=== PATIENT | male | born 1935 | race Caucasian/White ===

== ENCOUNTER → 2018-09-24 | Outpatient (CLI) | payer MEDICARE ==
[~2018-09-24] MED LIST: ADV250 IH; ASPI-555 PO; CALC500T13 PO; FISH12002 PO; GUAI1TBM19 PO; LEVO500T89 PO; MULT-1081 PO; POTA15TA11 PO; RAMI10CA69 PO; TIOT18CA3 IH; UBID50TA3 PO
== END | disposition home or self-care (01) ==
LOC: OIH 08:44
PROVIDERS: ATTEND Family Medicine
DX: J44.9 Chronic obstructive pulmonary disease, unspecified (principal); I25.10 Atherosclerotic heart disease of native coronary artery without angina pectoris; Z72.89 Other problems related to lifestyle
CPT/HCPCS: 71046

== ENCOUNTER 2020-01-02 11:56 | Inpatient (IN) | payer MEDICARE, OTHER ==
[2020-01-02] VITALS (15 sets, daily range): BP systolic 125–176; BP diastolic 63–97
[~2020-01-02] VITALS: Ht 180.3 cm; Wt 66.9 kg
[2020-01-02 12:56] LABS: BASOPHILS % (AUTO) 0.3 % (0.0-5.0); EOSINOPHILS % (AUTO) 3.6 % (0.0-8.0); HEMATOCRIT 30.8 % (42-54); LYMPHOCYTES % (AUTO) 20.3 % (21.0-51.0); MEAN CORPUSCULAR HEMOGLOBIN 31.2 pg (27.0-33.0); MEAN CORPUSCULAR HGB CONC 31.5 g/dL (32.0-36.0); MONOCYTES % (AUTO) 11.2 % (3.0-13.0); NEUTROPHILS % (AUTO) 64.3 % (40.0-77.0); PLATELET COUNT (AUTO) 226 K/uL (130-400); RED BLOOD CELL COUNT(AUTO) 3.11 MIL/uL (4.50-6.20); WHITE BLOOD COUNT (AUTO) 6.1 K/uL (4.8-10.8)
[2020-01-02 13:04] LABS: POTASSIUM 4.6 mmol/L (3.5-5.1)
[2020-01-02 13:10] LABS: ALBUMIN 3.2 g/dL (3.5-5.0); BILIRUBIN,TOTAL 0.3 mg/dL (0.2-1.0); TOTAL PROTEIN, SERUM 7.4 g/dL (6.0-8.3)
[2020-01-02] MEDS ORDERED: IPRATROPIUM/ALBUTEROL SULFATE 3 ML SOLUTION IH ONE (16:30)
[2020-01-02] MEDS ORDERED: PROPOFOL 10 MG/ML 20ML VIAL IV ONE (18:36)
[2020-01-02] MEDS ORDERED: LIDOCAINE HCL-MPF 2% 5ML VIAL ONE (18:38)
--- NOTE | 2020-01-02 19:25 | NUR ---
TRANSFER FROM GI LAB PT RECEIVED FROM GI LAB AT THIS TIME, AWAKE, ALERT AND VERBALLY RESPONSIVE. NO C/O PAIN OR DISCOMFORT AT THIS TIME. PT AND CAREGIVER ORIENTED TO ROOM, CALL COLON WITHIN REACH, BED IN LOWEST POSITION. Addendum: 01/02/20 at 2104 by SHAREE FLOREZ RN Amended: Links added.
[2020-01-02] MEDS: SODIUM CHLORIDE 0.9% 1000ML 1,000 ML IV SCH (20:30)
[2020-01-02] MEDS ORDERED: METO10TA3 PO (20:50)
[2020-01-02] MEDS ORDERED: TAMS-1 PO (20:50)
[2020-01-02] MEDS ORDERED: MONT10TA26 PO (20:50)
[2020-01-02] MEDS ORDERED: BACL10TA PO (20:50)
[2020-01-02] MEDS ORDERED: TRAZ-185 PO (20:50)
[2020-01-02] MEDS ORDERED: CLON0.1T PO (20:50)
[2020-01-02] MEDS ORDERED: ALBU1.252 IH (20:53)
[2020-01-03 00:08] VITALS: BP 133/74
[2020-01-03] MEDS: MEPERIDINE HCL/PF 25 MG/0.5 ML AMPUL IVP PRN ×3 (00:32→22:17)
[2020-01-03] MEDS ORDERED: GUAIFENESIN-DM 200/20 MG 10 ML PO PRN (01:00)
[2020-01-03] MEDS ORDERED: LACTULOSE 20 GM/30 ML UDCUP PO PRN (01:00)
[2020-01-03] MEDS ORDERED: DiphenhydrAMINE HCL 50 MG/ML VIAL IV PRN (01:00)
[2020-01-03] MEDS ORDERED: DIPHENHYDRAMINE HCL 25 MG CAPSULE PO PRN (01:00)
[2020-01-03] MEDS ORDERED: ACETAMINOPHEN 325 MG TAB PO PRN ×2 (01:00)
[2020-01-03] MEDS ORDERED: NITROGLYCERIN 0.4 MG SL TAB SL PRN (01:00)
[2020-01-03] MEDS ORDERED: MAG HYDROX/AL HYDROX/SIMETH ES 30 ML SUSP UDCUP PO PRN (01:00)
[2020-01-03 04:08] VITALS: BP 158/85
[2020-01-03 05:47] LABS: HEMATOCRIT 30.5 % (42-54); MEAN CORPUSCULAR HEMOGLOBIN 32.1 pg (27.0-33.0); MEAN CORPUSCULAR HGB CONC 32.5 g/dL (32.0-36.0); PLATELET COUNT (AUTO) 236 K/uL (130-400); RED BLOOD CELL COUNT(AUTO) 3.08 MIL/uL (4.50-6.20)
[2020-01-03 05:58] LABS: CREATININE 0.9 mg/dL (0.5-1.5); POTASSIUM 4.4 mmol/L (3.5-5.1)
[2020-01-03 06:16] LABS: BASOPHILS % (MANUAL) 1 % (0-2); EOSINOPHILS % (MANUAL) 5 % (1-6); LYMPHOCYTES % (MANUAL) 39 % (22-44); MAN.DIFF COMMENT-IMPRESSION MANUAL DIFFERENTIAL; MONOCYTES % (MANUAL) 8 % (2-9); SEGMENTED NEUTROPHILS % 47 % (40-70)
[2020-01-03] MEDS ORDERED: ALBUTEROL SULFATE 0.083% 2.5 MG/3 ML INH IH ONE (06:29)
[2020-01-03] MEDS: ALBUTEROL SULFATE 0.083% 2.5 MG/3 ML INH IH SCH ×4 (06:30→22:59)
[2020-01-03] MEDS ORDERED: ALBUTEROL SULFATE 0.042% 1.25 MG/3 ML INH IH SCH ×2 (06:30→12:00)
[2020-01-03 08:00] VITALS: BP 136/67
[2020-01-03] MEDS: FAMOTIDINE/PF 20 MG/2 ML VIAL IV SCH (09:08)
[2020-01-03] MEDS: BISACODYL 5 MG TABLET.DR PO SCH ×2 (09:08→20:28)
[2020-01-03] MEDS: POLYETHYLENE GLYCOL 3350 17 GM POWD.PACK PO SCH ×2 (09:09→20:28)
[2020-01-03 11:00] VITALS: BP 132/77
--- NOTE | 2020-01-03 12:22 | NUR ---
dr rodrigues paged inregards to starting pt's home medications and to give him updates on patient; pending call back
--- NOTE | 2020-01-03 12:34 | NUR ---
dr rodrigues here to see patient he said to hold pt's home medications that are oral till after cleared by dr morales and tolerating diet; I told him pt is still in extreme pain at times and he stated the [place] surgical consult will need to see patient in regards to possible necrotic bowel.
[2020-01-03 16:00] VITALS: BP 136/67
--- NOTE | 2020-01-03 16:42 | NUR ---
INITIAL: Met with pt this afternoon to discuss dcp. Pt mentions that he lives alone. He is independent w ambulation and ADls. He mentions that he has 28/05 caregivers avail to assist him as needed. Per pt he has home O2, walkers and wc avail if needed. He mentions that his caregivers are able to transport him where needed. Per pt he feels safe and comfortable to return home at mo. CM to continue to follow and wait for Md recommendations. Addendum: 01/03/20 at 1644 by CORBY LEES Amended: Links added.
--- NOTE | 2020-01-03 17:36 | NUR ---
18 fr rectal tube inserted and corona leg bag attached to end of it.
[2020-01-03] MEDS: IPRATROPIUM/ALBUTEROL SULFATE 3 ML SOLUTION IH SCH ×2 (18:27→22:57)
[2020-01-03] MEDS: BUDESONIDE 0.5 MG/2 ML INH IH SCH (18:38)
[2020-01-03 20:04] VITALS: BP 151/81
[2020-01-03] MEDS: SODIUM CHLORIDE 0.9% 1000ML 1,000 ML IV SCH (20:28)
[2020-01-03] MEDS: ONDANSETRON HCL 4 MG/2 ML VIAL IVP PRN (22:24)
[2020-01-04 00:04] VITALS: BP 149/68
[2020-01-04 04:04] VITALS: BP 121/69
[2020-01-04] MEDS: ALBUTEROL SULFATE 0.083% 2.5 MG/3 ML INH IH SCH (06:00)
[2020-01-04] MEDS: SODIUM CHLORIDE 0.9% 1000ML 1,000 ML IV SCH ×2 (06:07→20:17)
[2020-01-04] MEDS: BUDESONIDE 0.5 MG/2 ML INH IH SCH ×2 (06:16→18:48)
[2020-01-04] MEDS: IPRATROPIUM/ALBUTEROL SULFATE 3 ML SOLUTION IH SCH ×4 (06:16→23:35)
[2020-01-04 08:00] VITALS: BP 142/90
[2020-01-04] MEDS: POLYETHYLENE GLYCOL 3350 17 GM POWD.PACK PO SCH ×3 (10:51→20:20)
[2020-01-04] MEDS: FAMOTIDINE/PF 20 MG/2 ML VIAL IV SCH (10:51)
[2020-01-04] MEDS: BISACODYL 5 MG TABLET.DR PO SCH ×3 (10:51→20:20)
[2020-01-04 11:00] VITALS: BP 163/79
--- NOTE | 2020-01-04 13:14 | NUR ---
dr morales here to see patient; pt is slightly more disteneded today than yesterday despite fact that he has a rectal tube in place to help him pass gas, i have told him that pt has had 2 liquid stools. he stated to make pt npo and get cardiac consult for possible surgical clearance (dr aaron ponce j2ee application developer and he has been paged) and to call dr Tania Kaur and see if he wants to rescope the pt to decompress him ( i spoke to dr tania kaur on the phone and he said he'll take pt back tomorrow for decompression)
[2020-01-04 16:00] VITALS: BP 153/92
[2020-01-04 20:04] VITALS: BP 161/77
[2020-01-04] MEDS: ONDANSETRON HCL 4 MG/2 ML VIAL IVP PRN (22:08)
[2020-01-04] MEDS: MEPERIDINE HCL/PF 25 MG/0.5 ML AMPUL IVP PRN (22:08)
[2020-01-05] VITALS (24 sets, daily range): BP systolic 102–169; BP diastolic 62–88
[2020-01-05] MEDS: BUDESONIDE 0.5 MG/2 ML INH IH SCH ×2 (05:08→19:05)
[2020-01-05] MEDS: IPRATROPIUM/ALBUTEROL SULFATE 3 ML SOLUTION IH SCH ×4 (05:08→23:48)
[2020-01-05] MEDS: SODIUM CHLORIDE 0.9% 1000ML 1,000 ML IV SCH ×2 (05:19→18:36)
--- NOTE | 2020-01-05 06:30 | NUR ---
PT OFF UNIT PT TAKEN TO GI LAB THIS MORNING FOR SIGMOIDOSCOPY PROCEDURE. PT AWAKE, ALERT AND VERBALLY RESPONSIVE, TAKEN ON OXYGEN 2L VIA NC, NO S/O OF DISTRESS NOTED, NO C/O PAIN AT THIS TIME. ABDOMEN DISTENDED, BUT SOFT WHEN PALPATED.
[2020-01-05] MEDS ORDERED: PROPOFOL 10 MG/ML 20ML VIAL IV ONE (06:52)
[2020-01-05] MEDS ORDERED: LIDOCAINE HCL 1% 20 ML VIAL ONE (06:52)
--- NOTE | 2020-01-05 08:30 | NUR ---
s/p GI pt arrived to room awake, alert and oriented. provider at bedside. patient denies any pain and/or shortness of breath. post op vitals started. bowel sounds active
[2020-01-05] MEDS: POLYETHYLENE GLYCOL 3350 17 GM POWD.PACK PO SCH ×2 (08:51→19:51)
[2020-01-05] MEDS: FAMOTIDINE/PF 20 MG/2 ML VIAL IV SCH (08:51)
[2020-01-05] MEDS: BISACODYL 5 MG TABLET.DR PO SCH ×2 (08:51→19:51)
[2020-01-05] MEDS: ALBUTEROL SULFATE 0.083% 2.5 MG/3 ML INH IH SCH (23:48)
[2020-01-06 03:53] VITALS: BP 155/83
[2020-01-06] MEDS: BUDESONIDE 0.5 MG/2 ML INH IH SCH ×2 (05:04→18:21)
[2020-01-06] MEDS: IPRATROPIUM/ALBUTEROL SULFATE 3 ML SOLUTION IH SCH ×4 (05:04→23:28)
[2020-01-06] MEDS: ALBUTEROL SULFATE 0.083% 2.5 MG/3 ML INH IH SCH ×3 (06:00→18:00)
[2020-01-06 06:40] LABS: HEMATOCRIT 29.3 % (42-54); MEAN CORPUSCULAR HEMOGLOBIN 30.7 pg (27.0-33.0); MEAN CORPUSCULAR HGB CONC 31.7 g/dL (32.0-36.0); MEAN CORPUSCULAR VOLUME 96.7 fL (79-99); PLATELET COUNT (AUTO) 222 K/uL (130-400); RED BLOOD CELL COUNT(AUTO) 3.03 MIL/uL (4.50-6.20); RED CELL DISTRIBUTION WIDTH 12.5 % (11.0-15.5)
[2020-01-06] MEDS: SODIUM CHLORIDE 0.9% 1000ML 1,000 ML IV SCH ×2 (07:00→18:08)
[2020-01-06 07:07] LABS: BILIRUBIN,TOTAL 0.4 mg/dL (0.2-1.0); TOTAL PROTEIN, SERUM 7.3 g/dL (6.0-8.3)
[2020-01-06 07:31] LABS: EOSINOPHILS % (MANUAL) 7 % (1-6); LYMPHOCYTES % (MANUAL) 24 % (22-44); MONOCYTES % (MANUAL) 16 % (2-9); SEGMENTED NEUTROPHILS % 53 % (40-70)
[2020-01-06 07:33] LABS: MAN.DIFF COMMENT-IMPRESSION MANUAL DIFFERENTIAL
[2020-01-06 07:34] LABS: PLATELET MORPHOLOGY COMMENT ADEQUATE
[2020-01-06 08:14] VITALS: BP 153/70
[2020-01-06] MEDS: POLYETHYLENE GLYCOL 3350 17 GM POWD.PACK PO SCH ×2 (09:42→20:02)
[2020-01-06] MEDS: BISACODYL 5 MG TABLET.DR PO SCH ×2 (09:42→20:02)
[2020-01-06] MEDS: FAMOTIDINE/PF 20 MG/2 ML VIAL IV SCH (09:43)
[2020-01-06 10:53] VITALS: BP 128/80
--- NOTE | 2020-01-06 13:48 | NUR ---
DC PLANNING-- home? spoke with PTx; was advised pt steady on his feet and transfers independently. Addendum: 01/06/20 at 1349 by GAIL QUINN RN CM Amended: Links added.
[2020-01-06 16:59] VITALS: BP_SYST 158; BP_SYST 159; BP_DIAS 83; BP_DIAS 88
[2020-01-06 20:00] VITALS: BP 147/86
[2020-01-06] MEDS: ONDANSETRON HCL 4 MG/2 ML VIAL IVP PRN (22:57)
[2020-01-07] VITALS (7 sets, daily range): BP systolic 125–156; BP diastolic 69–94
[2020-01-07] MEDS: SODIUM CHLORIDE 0.9% 1000ML 1,000 ML IV SCH ×2 (05:54→17:25)
[2020-01-07] MEDS: IPRATROPIUM/ALBUTEROL SULFATE 3 ML SOLUTION IH SCH ×4 (06:20→23:32)
[2020-01-07] MEDS: BUDESONIDE 0.5 MG/2 ML INH IH SCH ×2 (06:30→18:27)
[2020-01-07] MEDS: FAMOTIDINE/PF 20 MG/2 ML VIAL IV SCH (09:00)
[2020-01-07] MEDS: BISACODYL 5 MG TABLET.DR PO SCH ×2 (09:00→19:44)
--- NOTE | 2020-01-07 11:08 | NUR ---
PT CONTINUES WITH C/O OF ABD PAIN., NAUSEA. ABD TENDER DISTENDED FIRM, BS ABSENT ON RLQ, PT REPORTS POS FLATUS, INFORMED [facility], STATES NO PLANS FOR SURGERY CONTACTED DR OCONNELL COVERING FOR DR MAGDALENO, NO ORDERS MESSAGE LEFT, PENDING CALL BACK, PT IS NPO, STABLE, VS WNL.
[2020-01-07] MEDS: POLYETHYLENE GLYCOL 3350 17 GM POWD.PACK PO SCH ×2 (12:38→19:44)
[2020-01-07] MEDS: ALBUTEROL SULFATE 0.083% 2.5 MG/3 ML INH IH SCH ×2 (18:00)
[2020-01-07] MEDS: MEPERIDINE HCL/PF 25 MG/0.5 ML AMPUL IVP PRN (22:41)
[2020-01-08] VITALS (21 sets, daily range): BP systolic 101–158; BP diastolic 60–95
[2020-01-08] MEDS: SODIUM CHLORIDE 0.9% 1000ML 1,000 ML IV SCH ×2 (05:27→17:57)
[2020-01-08] MEDS: ALBUTEROL SULFATE 0.083% 2.5 MG/3 ML INH IH SCH ×2 (06:00→18:00)
[2020-01-08] MEDS: BUDESONIDE 0.5 MG/2 ML INH IH SCH ×2 (06:07→16:52)
[2020-01-08] MEDS: IPRATROPIUM/ALBUTEROL SULFATE 3 ML SOLUTION IH SCH ×3 (06:08→16:52)
[2020-01-08] MEDS ORDERED: PROPOFOL 10 MG/ML 20ML VIAL IV ONE (07:49)
[2020-01-08] MEDS: BISACODYL 5 MG TABLET.DR PO SCH ×2 (09:00→19:54)
[2020-01-08] MEDS: POLYETHYLENE GLYCOL 3350 17 GM POWD.PACK PO SCH ×2 (09:00→19:54)
[2020-01-08] MEDS: FAMOTIDINE/PF 20 MG/2 ML VIAL IV SCH (09:00)
[2020-01-09] VITALS (7 sets, daily range): BP systolic 139–154; BP diastolic 72–89
[2020-01-09] MEDS: ALBUTEROL SULFATE 0.083% 2.5 MG/3 ML INH IH SCH ×2 (00:29→18:00)
[2020-01-09] MEDS: IPRATROPIUM/ALBUTEROL SULFATE 3 ML SOLUTION IH SCH ×5 (00:53→23:14)
[2020-01-09] MEDS: SODIUM CHLORIDE 0.9% 1000ML 1,000 ML IV SCH ×2 (04:58→19:22)
[2020-01-09] MEDS: BUDESONIDE 0.5 MG/2 ML INH IH SCH ×2 (06:09→19:06)
[2020-01-09] MEDS: FAMOTIDINE/PF 20 MG/2 ML VIAL IV SCH (08:57)
--- NOTE | 2020-01-09 12:56 | NUR ---
[facility] SCHNEIDER ROUNDED. DR THOMAS MAGDALENO DOES NOT PROVIDE ENOUGH INFORMATION FAR WHY THE PATIENTS NEEDS A HEMICOLECTOMY AND COLOSTOMY. WILL CALL DR MAGDALENO FOR CLARIFICATION.
--- NOTE | 2020-01-09 13:30 | NUR ---
LEONOR ZARATE FROM DR MAGDALENO'S OFFICE CALLED BACK. I INFORMED HER OF [facility] CAMPOVERDE CONCERNS AND REQUEST FOR MORE INFORMATION REGARDING NEED FOR HEMICOLECTOMY. LEONOR STATED THAT SHE WILL LET DR MAGDALENO NOW. I PROVIDED DR HARDEN'S CELLPHONE NUMBER.
--- NOTE | 2020-01-09 14:10 | NUR ---
RD Screen - LOS x 7 days Pt admitted with Volvulus. Pt with increased malnutrition risk d/t altered GI and extended diet restriction. Intestinal compression attempted X3, however unsuccessful as per EMR. Recommend Ensure Clear TID, 30mL Promod TID for nutritional/protein supplementation. Pt pending surgical intervention as per RN. If intolerance to Clear Liquid diet occurs, Recommend to consider altered means nutrition. RD to continue to monitor. Please notify RD as additional nutrition concerns arise. Addendum: 01/09/20 at [address] Amended: Links added.
[2020-01-09] MEDS: MEPERIDINE HCL/PF 25 MG/0.5 ML AMPUL IVP PRN (21:24)
--- NOTE | 2020-01-10 00:06 | NUR ---
DECOMPRESSION RECTAL TUBE TO MEDIUM SUCTION X5 MINUTES THEN OFF,TOLERATED WELL Addendum: 01/10/20 at 0051 by ELINA SHARMA RN RN Amended: Links added.
[2020-01-10 04:00] VITALS: BP 145/88
[2020-01-10] MEDS: SODIUM CHLORIDE 0.9% 1000ML 1,000 ML IV SCH ×2 (04:11→20:39)
[2020-01-10] MEDS: BUDESONIDE 0.5 MG/2 ML INH IH SCH ×2 (06:18→18:48)
[2020-01-10] MEDS: IPRATROPIUM/ALBUTEROL SULFATE 3 ML SOLUTION IH SCH ×4 (06:18→23:19)
[2020-01-10 08:00] VITALS: BP_SYST 142; BP_SYST 169; BP_DIAS 81; BP_DIAS 91
[2020-01-10] MEDS: FAMOTIDINE/PF 20 MG/2 ML VIAL IV SCH (09:31)
[2020-01-10 16:00] VITALS: BP 129/72
[2020-01-10] MEDS: ALBUTEROL SULFATE 0.083% 2.5 MG/3 ML INH IH SCH ×2 (18:00)
[2020-01-10 19:53] VITALS: BP 159/92
[2020-01-10 23:22] VITALS: BP 157/91
[2020-01-11 03:45] VITALS: BP 159/98
[2020-01-11] MEDS: SODIUM CHLORIDE 0.9% 1000ML 1,000 ML IV SCH ×2 (03:53→16:14)
[2020-01-11] MEDS: ALBUTEROL SULFATE 0.083% 2.5 MG/3 ML INH IH SCH ×4 (06:00→18:00)
[2020-01-11] MEDS: BUDESONIDE 0.5 MG/2 ML INH IH SCH ×2 (06:22→19:00)
[2020-01-11] MEDS: IPRATROPIUM/ALBUTEROL SULFATE 3 ML SOLUTION IH SCH ×3 (06:23→19:00)
[2020-01-11 08:00] VITALS: BP 141/77
[2020-01-11] MEDS: FAMOTIDINE/PF 20 MG/2 ML VIAL IV SCH (09:01)
[2020-01-11 11:00] VITALS: BP 146/80
--- NOTE | 2020-01-11 12:20 | NUR ---
PHYSICIAN ROUNDS DR FALL ROUNDED ON PATIENT PLACED ORDERS FOR CBC AND CMP IN AM
[2020-01-11 16:00] VITALS: BP 142/79
[2020-01-11 19:19] VITALS: BP 159/92
[2020-01-11 23:00] VITALS: BP 167/87
[2020-01-12] VITALS (27 sets, daily range): BP systolic 131–171; BP diastolic 59–107
[2020-01-12] MEDS: IPRATROPIUM/ALBUTEROL SULFATE 3 ML SOLUTION IH SCH ×4 (00:06→23:18)
[2020-01-12] MEDS: MEPERIDINE HCL/PF 25 MG/0.5 ML AMPUL IVP PRN ×3 (00:08→20:23)
[2020-01-12] MEDS: ONDANSETRON HCL 4 MG/2 ML VIAL IVP PRN ×2 (00:14→20:32)
[2020-01-12 06:00] LABS: BASOPHILS % (AUTO) 0.4 % (0.0-5.0); EOSINOPHILS % (AUTO) 4.9 % (0.0-8.0); HEMATOCRIT 28.3 % (42-54); LYMPHOCYTES % (AUTO) 24.2 % (21.0-51.0); MEAN CORPUSCULAR HEMOGLOBIN 31.2 pg (27.0-33.0); MEAN CORPUSCULAR HGB CONC 32.2 g/dL (32.0-36.0); MEAN CORPUSCULAR VOLUME 96.9 fL (79-99); MONOCYTES % (AUTO) 12.2 % (3.0-13.0); NEUTROPHILS % (AUTO) 57.9 % (40.0-77.0); PLATELET COUNT (AUTO) 233 K/uL (130-400); RED BLOOD CELL COUNT(AUTO) 2.92 MIL/uL (4.50-6.20); WHITE BLOOD COUNT (AUTO) 5.3 K/uL (4.8-10.8)
[2020-01-12] MEDS: BUDESONIDE 0.5 MG/2 ML INH IH SCH ×2 (06:19→18:43)
[2020-01-12 06:55] LABS: ALBUMIN 2.7 g/dL (3.5-5.0); BILIRUBIN,TOTAL 0.3 mg/dL (0.2-1.0); CREATININE 0.9 mg/dL (0.5-1.5); POTASSIUM 3.7 mmol/L (3.5-5.1); TOTAL PROTEIN, SERUM 6.7 g/dL (6.0-8.3)
[2020-01-12] MEDS ORDERED: LACTATED RINGERS 1000ML 1,000 ML IV ONE (08:10)
[2020-01-12 08:18] LABS: INR 0.98 (0.85-1.15); PARTIAL THROMBOPLASTIN TIME 27.4 SEC (26.3-35.5); PROTHROMBIN TIME 10.6 SEC (9.6-11.6)
[2020-01-12] MEDS ORDERED: LIDOCAINE PF 2% 5ML ABBOJECT ONE (08:34)
[2020-01-12] MEDS ORDERED: PROPOFOL 10 MG/ML 20ML VIAL IV ONE (08:34)
[2020-01-12] MEDS ORDERED: FENTANYL CITRATE PF 50 MCG/1 ML 2ML VIAL ONE (08:34)
[2020-01-12] MEDS ORDERED: SUCCINYLCHOLINE 200MG/10ML SYR ONE (08:34)
[2020-01-12] MEDS ORDERED: ROCURONIUM 10MG/1ML SYR 10 MG/ML ML ONE (08:35)
[2020-01-12] MEDS ORDERED: CLINDAMYCIN 900 MG/D5% WATER 50 ML IV ONE (08:44)
[2020-01-12] MEDS: FAMOTIDINE/PF 20 MG/2 ML VIAL IV SCH (09:00)
[2020-01-12] MEDS ORDERED: EPHEDRINE SULFATE 50 MG/ML AMPULE ONE (09:28)
[2020-01-12] MEDS ORDERED: ALBUMIN (HUMAN) 5% 250 ML IV ONE (09:28)
[2020-01-12] MEDS ORDERED: PHENYLEPHRINE HCL 10 MG/ML 1ML VIAL IV ONE ×2 (10:01→10:02)
[2020-01-12] MEDS ORDERED: GLYCOPYRROLATE 1 MG/5 ML SYRINGE ONE (10:12)
[2020-01-12] MEDS ORDERED: NEOSTIGMINE 5MG/5ML SYR IV ONE (10:12)
[2020-01-12] MEDS ORDERED: MEPERIDINE-PF 25 MG/ML SYG ONE ×3 (10:40→11:25)
--- NOTE | 2020-01-12 12:20 | NUR ---
PT HAS RETURNED POST OP FROM PACU, HE ARRIVED C/O PAIN, ODALYS FROM PACU STATED DUE TO HIS BREATHING ISSUES THEY WERE BEING CAREFULL ABOUT GIVING TO MUCH NARCOTIC AND THAT HE HAS RECEIVED DEMEROL 2X ALREADY IN PACU; PT HAS A CLEAN DRY AND INTACT DRESSING TO ABDOMAN W/ A COLOSTOMY IN PLACE TO LEFT LOWER QUAD OF ABDOMAN; NO BOWEL SOUNDS NOTED AT THIS TIME; WILL CONT TO MONITOR AND SEE ABOUT PTS PAIN.
[2020-01-12] MEDS ORDERED: MEPERIDINE-PF 50 MG/ML SYG ONE (12:55)
[2020-01-12] MEDS: LACTATED RINGERS 1000ML 1,000 ML IV SCH ×2 (14:15→20:01)
[2020-01-12 14:26] LABS: BASOPHILS % (AUTO) 0.3 % (0.0-5.0); EOSINOPHILS % (AUTO) 1.6 % (0.0-8.0); HEMATOCRIT 29.3 % (42-54); LYMPHOCYTES % (AUTO) 12.1 % (21.0-51.0); MEAN CORPUSCULAR HEMOGLOBIN 31.2 pg (27.0-33.0); MEAN CORPUSCULAR HGB CONC 32.1 g/dL (32.0-36.0); MEAN CORPUSCULAR VOLUME 97.3 fL (79-99); NEUTROPHILS % (AUTO) 80.7 % (40.0-77.0); PLATELET COUNT (AUTO) 234 K/uL (130-400); RED BLOOD CELL COUNT(AUTO) 3.01 MIL/uL (4.50-6.20); WHITE BLOOD COUNT (AUTO) 7.4 K/uL (4.8-10.8)
[2020-01-12] MEDS ORDERED: MORPHINE SULFATE 4 MG/1ML SYG ONE (17:21)
[2020-01-12] MEDS: SODIUM CHLORIDE 0.9% 1000ML 1,000 ML IV SCH ×2 (19:48)
[2020-01-13] VITALS (7 sets, daily range): BP systolic 138–167; BP diastolic 70–95
[2020-01-13] MEDS: MORPHINE SULFATE 4 MG/1ML SYG IV PRN ×4 (01:53→20:05)
[2020-01-13] MEDS: SODIUM CHLORIDE 0.9% 1000ML 1,000 ML IV SCH ×3 (03:06→18:10)
[2020-01-13 04:03] LABS: BASOPHILS % (AUTO) 0.2 % (0.0-5.0); EOSINOPHILS % (AUTO) 0.1 % (0.0-8.0); LYMPHOCYTES % (AUTO) 5.8 % (21.0-51.0); MEAN CORPUSCULAR HEMOGLOBIN 30.9 pg (27.0-33.0); MEAN CORPUSCULAR HGB CONC 32.3 g/dL (32.0-36.0); MEAN CORPUSCULAR VOLUME 95.5 fL (79-99); MONOCYTES % (AUTO) 5.1 % (3.0-13.0); NEUTROPHILS % (AUTO) 88.4 % (40.0-77.0); PLATELET COUNT (AUTO) 258 K/uL (130-400); RED BLOOD CELL COUNT(AUTO) 3.14 MIL/uL (4.50-6.20); WHITE BLOOD COUNT (AUTO) 16.8 K/uL (4.8-10.8)
[2020-01-13] MEDS: LACTATED RINGERS 1000ML 1,000 ML IV SCH ×3 (04:04→19:55)
[2020-01-13 04:11] LABS: POTASSIUM 4.3 mmol/L (3.5-5.1)
[2020-01-13] MEDS: BUDESONIDE 0.5 MG/2 ML INH IH SCH ×2 (05:11→18:27)
[2020-01-13] MEDS: IPRATROPIUM/ALBUTEROL SULFATE 3 ML SOLUTION IH SCH ×4 (05:11→23:29)
[2020-01-13] MEDS: ALBUTEROL SULFATE 0.083% 2.5 MG/3 ML INH IH SCH ×2 (06:00→10:54)
--- NOTE | 2020-01-13 06:40 | NUR ---
RECEIVED RECEIVED PT FROM DARSHANA JANSEN. BEDSIDE REPORT DONE. PT IS AAOX3. CLAIMS OF NAUSEA AND IS HAVING DRY HEAVES. RE-POSITIONED IN BED WITH HOB ELEVATED. DRESSING TO MID ABDOMEN DRY AND INTACT. COLOSTOMY TO LEFT LOWER ABDOMEN INTACT. CONTINUED IVF OF LR AT 125CC/HR. PT PLACED ON O2 AT 2LPM VIA NC. PT IS O2 DEPENDENT. F/C INTACT AND IS DRAINING WELL TO BSD WITH YELLOW URINE. MEDICATED WITH ZOFRAN IV FOR N/V. ENDORSING TO AM SHIFT, BRODIE GILLILAND, FOR MORE CARE AND MANAGEMENT.
[2020-01-13] MEDS: ONDANSETRON HCL 4 MG/2 ML VIAL IVP PRN ×2 (06:46→14:22)
[2020-01-13] MEDS: FAMOTIDINE/PF 20 MG/2 ML VIAL IV SCH (09:15)
--- NOTE | 2020-01-13 13:00 | NUR ---
CM Note: [facility] pending acceptance CM met with pt and caregiver, discussed MD recommendations for short term rehab prior to dc home, pt agreeable, ERICA signed for [facility]. Faxed order, clinicals, PASRR, confirmation received. Spoke to Caroline gaxiola/[facility], will come eval pt, made aware dcp 24-48hrs pending surgeon clearance. Pt pending acceptance. EMS filled out pending to be faxed w/current date. Primary nurse aware. CM to cont to follow up.
--- NOTE | 2020-01-13 15:11 | NUR ---
FOLLOW UP NOTE Pt NPO at time of screen. Pt s/p ex lap, hemicolectomy, colostomy. When medically feasible, recommend to advance diet as tolerated to GI soft/[place] diet order. LISA to continue to monitor. Please notify LISA as additional nutrition concerns arise. Thank you. Addendum: 01/13/20 at [address] Amended: Links added.
[2020-01-13] MEDS: CLONIDINE HCL 0.1 MG TABLET PO PRN (17:09)
--- NOTE | 2020-01-13 19:50 | NUR ---
MEDS SHIFT ASSESSMENT DONE, PLEASE REFER TO CHART. PT CLAIMS OF POST OP PAINS AND REQUESTED A SLEEPING PILL. CONTINUED IVF OF LR. AMBIEN GIVEN WITH SIPS OF WATER FOR SLEEP. MORPHINE GIVEN FOR PAIN. KEPT COMFORTABLE IN BED WITH HOB ELEVATED. INSTRUCTED TO SPLINT ABDOMEN WHEN COUGHING. PILLOW PROVIDED. WILL RE-ASSESS PT. PRIVATE SITTER AT BEDSIDE. Addendum: 01/13/20 at 2226 by DARIA BHATT RN RN Amended: Links added.
[2020-01-13] MEDS: ZOLPIDEM TARTRATE 5 MG TAB PO PRN (19:55)
--- NOTE | 2020-01-13 22:00 | NUR ---
ROUNDS PT RESTING WELL, FAIRLY ASLEEP NO DISTRESS NOTED. KEPT RESTED AND COMFORTABLE. CALL LIGHT WITHIN REACH. PRIVATE SITTER AT BEDSIDE.
--- NOTE | 2020-01-13 23:20 | NUR ---
SOB PT IS HAVING SOB AT REST. RE-POSITIONED COMFORTABLY IN BED ON HIGH ROTIZ'S POSITION. O2 SAT RE-CHECKED =91% ON 3LPM NC. INSTRUCTED TO BREATH THROUGH HIS NOSE. CALLED RT TO GIVE BREATHING TREATMENT.
[2020-01-14] MEDS: CLONIDINE HCL 0.1 MG TABLET PO PRN (00:07)
--- NOTE | 2020-01-14 02:00 | NUR ---
ROUNDS PT RESTING WELL, FAIRLY ASLEEP WITH RESPIRATIONS EVEN AND UNLABORED. NO RESPIRATORY DISTRESS NOTED. KEPT UNDISTURBED FOR NOW. WILL MONITOR PT.
[2020-01-14 03:26] VITALS: BP 134/88
[2020-01-14] MEDS: LACTATED RINGERS 1000ML 1,000 ML IV SCH ×2 (03:57→15:24)
[2020-01-14] MEDS: MORPHINE SULFATE 4 MG/1ML SYG IV PRN ×2 (04:45→10:06)
--- NOTE | 2020-01-14 04:45 | NUR ---
SOB PT AWAKENS AND COMPLAINTS OF SOB. PT COMPLAINTS OF POST OP PAINS WELL. KEPT HOB ELEVATED AND ON O2. CALLED RT FOR BREATHING TREATMENT. MEDICATED WITH MORPHINE IV FOR PAIN. WILL RE-ASSESS PT.
[2020-01-14] MEDS: IPRATROPIUM/ALBUTEROL SULFATE 3 ML SOLUTION IH SCH ×4 (04:57→23:34)
[2020-01-14 06:07] LABS: MEAN CORPUSCULAR HEMOGLOBIN 31.3 pg (27.0-33.0); MEAN CORPUSCULAR HGB CONC 32.6 g/dL (32.0-36.0); MEAN CORPUSCULAR VOLUME 96.1 fL (79-99); PLATELET COUNT (AUTO) 220 K/uL (130-400); RED BLOOD CELL COUNT(AUTO) 2.81 MIL/uL (4.50-6.20); RED CELL DISTRIBUTION WIDTH 12.1 % (11.0-15.5); WHITE BLOOD COUNT (AUTO) 14.7 K/uL (4.8-10.8)
[2020-01-14 06:29] LABS: ALBUMIN 2.3 g/dL (3.5-5.0); BILIRUBIN,TOTAL 0.4 mg/dL (0.2-1.0); POTASSIUM 4.3 mmol/L (3.5-5.1); TOTAL PROTEIN, SERUM 6.2 g/dL (6.0-8.3)
[2020-01-14] MEDS: BUDESONIDE 0.5 MG/2 ML INH IH SCH ×2 (07:17→18:48)
[2020-01-14 07:30] VITALS: BP 144/98
[2020-01-14] MEDS ORDERED: SUB TO BREO ELLIPTA 100MCG/25MCG PER P&T IH SCH (09:00)
[2020-01-14] MEDS ORDERED: SUB TO IPRATROPIUM 0.5MG/2.5ML PER P&T IH SCH (09:00)
[2020-01-14] MEDS: FAMOTIDINE/PF 20 MG/2 ML VIAL IV SCH (09:50)
[2020-01-14 11:11] VITALS: BP 113/68
--- NOTE | 2020-01-14 13:42 | NUR ---
CM Note: [facility] pending ins auth CM spoke to Caroline gaxiola/Jamal, verbalized pt has [employer] insurance, pending ins auth at this time. Primary nurse aware. CM to cont to follow up.
[2020-01-14 16:59] VITALS: BP 156/91
[2020-01-14] MEDS: KETOROLAC TROMETHAMINE 30MG/ML IV PRN (18:20)
--- NOTE | 2020-01-14 19:28 | NUR ---
PT REFUSED F/C REMOVAL SINCE HOME MEDS ARE STILL NOT YET RESUMED. DR. REECE MARCH D/C IN AM.
[2020-01-14 20:28] VITALS: BP 148/78
[2020-01-14] MEDS: LEVOFLOXACIN 750 MG/D5W 150 ML 150 ML IV SCH (20:34)
[2020-01-14] MEDS: METOCLOPRAMIDE 10 MG/2 ML VIAL IVP SCH (20:34)
[2020-01-15] VITALS (7 sets, daily range): BP systolic 136–173; BP diastolic 73–96
[2020-01-15] MEDS: LACTATED RINGERS 1000ML 1,000 ML IV SCH ×3 (00:20→17:01)
[2020-01-15 04:51] LABS: HEMATOCRIT 26.3 % (42-54); MEAN CORPUSCULAR HEMOGLOBIN 30.9 pg (27.0-33.0); MEAN CORPUSCULAR HGB CONC 32.7 g/dL (32.0-36.0); MEAN CORPUSCULAR VOLUME 94.6 fL (79-99); PLATELET COUNT (AUTO) 194 K/uL (130-400); RED BLOOD CELL COUNT(AUTO) 2.78 MIL/uL (4.50-6.20); RED CELL DISTRIBUTION WIDTH 12.1 % (11.0-15.5); WHITE BLOOD COUNT (AUTO) 13.5 K/uL (4.8-10.8)
[2020-01-15 05:17] LABS: CREATININE 1.1 mg/dL (0.5-1.5)
[2020-01-15] MEDS: ONDANSETRON HCL 4 MG/2 ML VIAL IVP PRN ×2 (05:31→10:45)
[2020-01-15] MEDS: IPRATROPIUM/ALBUTEROL SULFATE 3 ML SOLUTION IH SCH ×4 (05:49→22:04)
[2020-01-15] MEDS: BUDESONIDE 0.5 MG/2 ML INH IH SCH ×2 (07:30→18:56)
[2020-01-15] MEDS: FAMOTIDINE/PF 20 MG/2 ML VIAL IV SCH (09:31)
[2020-01-15] MEDS: METOCLOPRAMIDE 10 MG/2 ML VIAL IVP SCH ×2 (09:31→20:45)
[2020-01-15] MEDS: SODIUM CHLORIDE 0.9% 1000ML 1,000 ML IV SCH ×3 (09:43→13:56)
[2020-01-15] MEDS: TAMSULOSIN HCL 0.4 MG CAP.ER.24H PO SCH (13:10)
--- NOTE | 2020-01-15 13:38 | NUR ---
CM Note: [facility] pending ins auth CM spoke to Caroline gaxiola/[facility], pt still pending ins auth at this time. EMS arranged and faxed for today, primary nurse to call [facility] once pt ready to DC. Primary nurse aware. CM to cont to follow up.
[2020-01-15] MEDS: KETOROLAC TROMETHAMINE 30MG/ML IV PRN (14:59)
--- NOTE | 2020-01-15 17:32 | NUR ---
CALLED LOLITA CAMPOVERDE PA-C FOR DR. HARDEN TO UPDATE HIM WITH KUB RESULTS. AWAITING CALLBACK. STABLE, NO CHANGES IN CONDITION.
--- NOTE | 2020-01-15 20:21 | NUR ---
SPOKE WITH LOLITA CAMPOVERDE IN THIS PHONE NUMBER [phone] INFORMED ABOUT THE REPORT OF XRAY OF THE ABDOMEN, HE SAID HE WILL SEE PATIENT IN THE MORNING. INFORMED HIM THAT PT IS STOOLING IN THE OSTOMY. NOR ORDERS MADE
--- NOTE | 2020-01-15 20:32 | NUR ---
HAD GOTTEN ORDER FROM DR. FALL TO START FLOMAX 0.4MG DAILY, AND D/C HAINES CATHETER IN AM. ENDORSED TO ONCOMING NURSE.
[2020-01-15] MEDS: TRAMADOL HCL 50 MG TABLET PO PRN (20:45)
[2020-01-15] MEDS: LEVOFLOXACIN 750 MG/D5W 150 ML 150 ML IV SCH (20:45)
[2020-01-15] MEDS: CLONIDINE HCL 0.1 MG TABLET PO PRN (20:45)
[2020-01-16 00:34] VITALS: BP 105/47
[2020-01-16] MEDS: SODIUM CHLORIDE 0.9% 1000ML 1,000 ML IV SCH ×3 (01:42→18:28)
[2020-01-16] MEDS: IPRATROPIUM/ALBUTEROL SULFATE 3 ML SOLUTION IH SCH ×6 (02:06→22:08)
[2020-01-16 04:22] VITALS: BP 113/75
[2020-01-16 05:06] LABS: BASOPHILS % (AUTO) 0.2 % (0.0-5.0); EOSINOPHILS % (AUTO) 1.7 % (0.0-8.0); HEMATOCRIT 23.9 % (42-54); LYMPHOCYTES % (AUTO) 8.2 % (21.0-51.0); MEAN CORPUSCULAR HEMOGLOBIN 31.2 pg (27.0-33.0); MEAN CORPUSCULAR HGB CONC 32.6 g/dL (32.0-36.0); MEAN CORPUSCULAR VOLUME 95.6 fL (79-99); MONOCYTES % (AUTO) 8.3 % (3.0-13.0); NEUTROPHILS % (AUTO) 81.1 % (40.0-77.0); PLATELET COUNT (AUTO) 180 K/uL (130-400); RED CELL DISTRIBUTION WIDTH 12.2 % (11.0-15.5); WHITE BLOOD COUNT (AUTO) 11.4 K/uL (4.8-10.8)
[2020-01-16] MEDS: LACTATED RINGERS 1000ML 1,000 ML IV SCH (05:46)
[2020-01-16 06:00] LABS: ALBUMIN 1.9 g/dL (3.5-5.0); BILIRUBIN,TOTAL 0.4 mg/dL (0.2-1.0); POTASSIUM 3.8 mmol/L (3.5-5.1); TOTAL PROTEIN, SERUM 5.8 g/dL (6.0-8.3)
[2020-01-16] MEDS: BUDESONIDE 0.5 MG/2 ML INH IH SCH ×2 (06:20→18:26)
[2020-01-16 07:30] VITALS: BP 130/77
[2020-01-16] MEDS: METOCLOPRAMIDE 10 MG/2 ML VIAL IVP SCH ×2 (09:26→20:19)
[2020-01-16] MEDS: FAMOTIDINE/PF 20 MG/2 ML VIAL IV SCH (09:26)
[2020-01-16] MEDS: TAMSULOSIN HCL 0.4 MG CAP.ER.24H PO SCH (09:27)
[2020-01-16 11:00] VITALS: BP 166/89
--- NOTE | 2020-01-16 12:02 | NUR ---
CM Note: [facility] pending approval CM spoke to Caroline gaxiola/Jamal, verbalized pt has [employer] insurance, pending ins auth still at this time. EMS arranged and faxed for today, primary nurse to call [facility] once pt ready to DC. Primary nurse aware. CM to cont to follow up.
--- NOTE | 2020-01-16 12:33 | NUR ---
RD FOLLOW UP PT IS ON CLEAR LIQUID DIET AND CLAIMS TO BE TOLERATING WELL. NO COMPLAINTS OF N/V. NO COMPLAINTS OF ABDOMINAL PAIN WITH MEALS. HE MENTIONED THAT MD WILL BE ADVANCING HIS DIET TODAY. LOOSE STOOLS NOTED. LABS AND MEDS REVIEWED. SKIN IS INTACT. RD RECOMMENDS ADVANCE DIET TOLERATED TO FULL LIQUIDS, LASTLY GI SOFT/BLAND ADD ENSURE (VANILLA) BID TO DIET ORDER MONITOR TOLERANCE TO PO INTAKE Addendum: 01/16/20 at [address] Amended: Links added.
--- NOTE | 2020-01-16 15:00 | NUR ---
CM Note: [facility] ins auth CM spoke to Caroline gaxiola/Jamal, pt has ins auth, EMS arranged and faxed for today, primary nurse to call [facility] once pt ready to DC. Dr Ontiveros aware. Pt pending to adv diet and surgeon to give clearance. Primary nurse aware. CM to cont to follow up.
[2020-01-16 16:00] VITALS: BP 149/79
[2020-01-16] MEDS: LEVOFLOXACIN 750 MG/D5W 150 ML 150 ML IV SCH (18:28)
[2020-01-16] MEDS: TRAMADOL HCL 50 MG TABLET PO PRN (18:29)
[2020-01-16 21:17] VITALS: BP 142/73
[2020-01-17] VITALS (7 sets, daily range): BP systolic 110–148; BP diastolic 57–85
--- NOTE | 2020-01-17 00:55 | NUR ---
PATIENT AWAKE, ALERT, RESTING IN BED WITH HOB ELEVATED, ON O2@2L/NC, NOTED WITH LABORED BREATHING, USING ABDOMINAL MUSCLES, RESPIRATIONS 25. PATIENT ON DUONEBS Q4HRS. B/P 145/84, NOTED IRREGULAR HEART RATE PER B/P MACHINE 70'S-130'S. NO MENTION OF AFIB HX ON H&P OR MD NOTES AND NO ANTI-ARRHYTHMIC HOME MEDS NOTED. DR. FALL WAS CALLED, PENDING CALL BACK.
[2020-01-17] MEDS: IPRATROPIUM/ALBUTEROL SULFATE 3 ML SOLUTION IH SCH (01:05)
[2020-01-17] MEDS: ZOLPIDEM TARTRATE 5 MG TAB PO PRN (01:23)
--- NOTE | 2020-01-17 02:05 | NUR ---
DR FALL CALLED BACK, UPDATED ON PATIENT'S CURRENT RESPIRATORY STATUS, AND AFIB 130'S, NEW LAB/CXR/LASIX/CARDIZEM/ATROVENT/ABG/BIPAP ORDERS GIVEN AND CARRIED FORWARD. REFER TO DR'S ORDERS.
[2020-01-17] MEDS ORDERED: DILTIAZEM HCL 180 MG CAP.SR.24H PO ONE (02:15)
[2020-01-17 02:22] LABS: ABG BASE EXCESS 2.1 mmol/L (-2.0-3.0); ABG HCO3 27.3 mmol/L (21.0-28.0); ABG OXYGEN SATURATION 96.7 % (95.0-99.0); ABG PCO2 45 mmHg (35-48)
[2020-01-17 02:35] LABS: HEMATOCRIT 26.4 % (42-54); MEAN CORPUSCULAR HEMOGLOBIN 31.4 pg (27.0-33.0); MEAN CORPUSCULAR VOLUME 95.3 fL (79-99); PLATELET COUNT (AUTO) 241 K/uL (130-400); RED BLOOD CELL COUNT(AUTO) 2.77 MIL/uL (4.50-6.20); RED CELL DISTRIBUTION WIDTH 12.4 % (11.0-15.5); WHITE BLOOD COUNT (AUTO) 12.7 K/uL (4.8-10.8)
[2020-01-17] MEDS: FUROSEMIDE 10 MG/ML 4ML VIAL IV SCH ×2 (02:39→12:50)
--- NOTE | 2020-01-17 02:45 | NUR ---
WHILE ON BIPAP, PATIENT STARTED TO BECOME VERY ANXIOUS, STATES HE IS CLAUSTROPHOBIC, REFUSES BIPAP & PLACED BACK ON N/C. CARDIZEM ADMINISTERED, AFIB UP TO 160'S. WILL CONTINUE TO MONITOR.
[2020-01-17 02:48] LABS: CREATININE 0.9 mg/dL (0.5-1.5); POTASSIUM 3.9 mmol/L (3.5-5.1)
[2020-01-17 02:59] LABS: ALBUMIN 2.3 g/dL (3.5-5.0); B-TYPE NATRIURETIC PEPTIDE 1770 pg/mL (0-100); BILIRUBIN,TOTAL 0.4 mg/dL (0.2-1.0); TOTAL PROTEIN, SERUM 6.6 g/dL (6.0-8.3); TROPONIN I 0.14 ng/mL (0.00-0.06)
--- NOTE | 2020-01-17 03:40 | NUR ---
CALLED DR. FALL TO REPORT LAB/TEST RESULTS, PENDING CALL BACK.
--- NOTE | 2020-01-17 03:45 | NUR ---
PATIENT TRYING TO VOID USING URINAL, BUT ONLY VOIDS VERY SMALL AMOUNTS APPROXIMATELY 25CC WITH DIFFICULTY. BECOMING VERY ANXIOUS HE TRIES TO VOID. F/C 16FR INSERTED, OBTAINED 40OCC URINE WITH SEDIMENT. WILL CONTINUE TO MONITOR.
[2020-01-17] MEDS: BUDESONIDE 0.5 MG/2 ML INH IH SCH (05:15)
[2020-01-17] MEDS: IPRATROPIUM 0.5 MG/2.5 ML INH IH SCH ×4 (05:15→22:26)
--- NOTE | 2020-01-17 05:15 | NUR ---
CALLED DR. FALL AGAIN, REPORTED ABG/ELEVATED BNP & TROPONIN RESULTS. INFORMED DESPITE CARDIZEM 180MG PO, PATIENT HAS REMAINED IN AFIB CURRENTLY IN 140'S. NEW ORDERS GIVEN FOR DIGOXIN, STOP IV FLUIDS AND ECHO. ORDERS CARRIED FORWARD.
[2020-01-17] MEDS: DIGOXIN 250 MCG/ML 2ML AMP IV SCH ×3 (05:33→22:56)
--- NOTE | 2020-01-17 06:45 | NUR ---
PER TELEMETRY, PATIENT IN AFIB UPPER 90'S. PATIENT CURRENTLY RESTING IN BED WITH HOB ELEVATED, O2@2.5L/NC, WITH AUDIBLE EXPIRATORY WHEEZING, CURRENTLY ON ATROVENT. WILL CONTINUE TO MONITOR.
--- NOTE | 2020-01-17 08:00 | NUR ---
afib tele report afib 90s. pt is awake and alert. providers at bedside. denies shortness of breath but upon auscultation, wheezing and tightness across all lobes. on NC 3L. pt refusing BiPap. continue to monitor
[2020-01-17 08:46] LABS: TROPONIN I 0.19 ng/mL (0.00-0.06)
[2020-01-17] MEDS ORDERED: LORAZEPAM 2 MG/ML 1 ML VIAL ONE (09:00)
[2020-01-17] MEDS ORDERED: IPRATROPIUM 0.5 MG/2.5 ML INH IH PRN (09:00)
[2020-01-17] MEDS ORDERED: METHYLPREDNISOLONE SOD SUCC 125MG/2ML VIAL IVP SCH (09:00)
[2020-01-17] MEDS: TAMSULOSIN HCL 0.4 MG CAP.ER.24H PO SCH (09:00)
[2020-01-17] MEDS: FAMOTIDINE/PF 20 MG/2 ML VIAL IV SCH (09:00)
[2020-01-17] MEDS ORDERED: LORAZEPAM 2 MG/ML 1 ML VIAL IM PRN (09:00)
--- NOTE | 2020-01-17 09:05 | NUR ---
Bpap spoke with Dr. rodrigues. orders for ativan 1 mg q4 PRN to assist with BiPap and 1x order of steroid. corona cath placed by HS nurse. results of CXR given to MD via phone. is aware of labs as reported by HS nurse. will continue to monitor. pt remains awake and alert. explained purpose of ativan and is in aberrance that once it works, he will be placed on bipap. explained purpose of steroid IV. pt has no questions and/or concerns.
[2020-01-17] MEDS ORDERED: METHYLPREDNISOLONE SOD SUCC 125MG/2ML VIAL ONE (09:06)
[2020-01-17] MEDS ORDERED: IOHEXOL 350 MG/ML 100ML INFUS..BTL IV ONE (11:01)
--- NOTE | 2020-01-17 12:36 | NUR ---
HOLD SECONDARY TO ELEVATED D DIMER POSSIBLE PE. Addendum: 01/17/20 at 1236 by ALPESH GARCIA PT Amended: Links added.
[2020-01-17] MEDS: METOCLOPRAMIDE 10 MG/2 ML VIAL IVP SCH ×2 (12:50→22:55)
--- NOTE | 2020-01-17 15:00 | NUR ---
bipap attempted to take patient off of BiPap. pt verbalized understanding of purpose. could not tolerate more than 5 minutes of being off BiPap. audible wheezing and use of accessory muscles needed. placed back on BiPap. new orders from PCP to consult pulmonology delivery consultant..
[2020-01-17 15:13] LABS: TROPONIN I 0.21 ng/mL (0.00-0.06)
[2020-01-17] MEDS: METHYLPREDNISOLONE SOD SUCC 125MG/2ML VIAL IVP SCH ×2 (16:46→22:57)
[2020-01-17] MEDS ORDERED: ACETYLCYSTEINE 20% 200MG/ML 4ML VIAL ONE (16:57)
[2020-01-17] MEDS: LORAZEPAM 2 MG/ML 1 ML VIAL IVP PRN ×2 (17:23→22:57)
--- NOTE | 2020-01-17 18:31 | NUR ---
lab informed of critical lactic acid 2.2 ... awaiting orders
--- NOTE | 2020-01-17 19:28 | NUR ---
CT abd results for the CT abd given to MD. continue to monitor. as per MD, only place NG tube if vomit or severe pain is noted
--- NOTE | 2020-01-17 22:06 | NUR ---
critical lactic acid of 2.2. paged at 1760, waiting for call back.
[2020-01-17] MEDS: LEVOFLOXACIN 750 MG/D5W 150 ML 150 ML IV SCH (22:55)
[2020-01-17] MEDS: DILTIAZEM HCL 180 MG CAP.SR.24H PO SCH (22:58)
--- NOTE | 2020-01-17 23:19 | NUR ---
EUFEMIA RETURNED PAGED. INFORMED OF LACTIC ACID 2.2. PHYSICIAN STATED IF PT IS NOT IN DISTRESS, NO INTERVENTIONS NEED TO BE DONE AT THIS TIME. PT IS CURRENTLY NOT EXPERIENCING ANY S/S OF DISTRESS. BIPAP IS ON. SITTER AT BEDSIDE, WILL CONTINUE TO MONITOR.
[2020-01-18] VITALS (12 sets, daily range): BP systolic 106–165; BP diastolic 48–94
[2020-01-18] MEDS: IPRATROPIUM 0.5 MG/2.5 ML INH IH SCH ×6 (01:31→22:04)
[2020-01-18] MEDS: ACETYLCYSTEINE 20% 200MG/ML 4ML VIAL IH SCH ×5 (01:33→22:04)
[2020-01-18] MEDS: ONDANSETRON HCL 4 MG/2 ML VIAL IVP PRN (02:14)
[2020-01-18] MEDS: FUROSEMIDE 10 MG/ML 4ML VIAL IV SCH ×2 (02:14→14:51)
[2020-01-18] MEDS: MORPHINE SULFATE 4 MG/1ML SYG IV PRN (02:20)
[2020-01-18] MEDS: METHYLPREDNISOLONE SOD SUCC 125MG/2ML VIAL IVP SCH ×4 (05:01→21:42)
[2020-01-18] MEDS: LORAZEPAM 2 MG/ML 1 ML VIAL IVP PRN (05:01)
[2020-01-18] MEDS: DIGOXIN 250 MCG/ML 2ML AMP IV SCH (05:02)
[2020-01-18 05:20] LABS: BASOPHILS % (AUTO) 0.1 % (0.0-5.0); HEMATOCRIT 26.9 % (42-54); MEAN CORPUSCULAR HEMOGLOBIN 30.4 pg (27.0-33.0); MEAN CORPUSCULAR VOLUME 95.1 fL (79-99); MONOCYTES % (AUTO) 2.6 % (3.0-13.0); NEUTROPHILS % (AUTO) 88.7 % (40.0-77.0); PLATELET COUNT (AUTO) 282 K/uL (130-400); RED BLOOD CELL COUNT(AUTO) 2.83 MIL/uL (4.50-6.20); RED CELL DISTRIBUTION WIDTH 12.2 % (11.0-15.5); WHITE BLOOD COUNT (AUTO) 8.8 K/uL (4.8-10.8)
[2020-01-18] MEDS: BUDESONIDE 0.5 MG/2 ML INH IH SCH ×2 (05:34→18:19)
[2020-01-18 05:39] LABS: ALBUMIN 2.1 g/dL (3.5-5.0); BILIRUBIN,TOTAL 0.3 mg/dL (0.2-1.0); POTASSIUM 3.7 mmol/L (3.5-5.1); TOTAL PROTEIN, SERUM 6.5 g/dL (6.0-8.3)
--- NOTE | 2020-01-18 07:35 | NUR ---
rounds patient removed off bipap to assess ability to breathe on own. pt is awake and alert/oriented. pt is asked if all measures are to be taken incase of sudden cardiac arrest, pt stated he wants all aggressive measures to be taken. Charge nurse Korin and HS nurse Sherry present during assessment. pt placed on humidified NC2L, sats 90-93% on 3L. SCDs active, bowel sounds hypoactive and lungs are diminished/absent on left, wheezing and tight on right.
--- NOTE | 2020-01-18 08:35 | NUR ---
report given to Vahid Davis RN at ext [phone]
--- NOTE | 2020-01-18 08:45 | NUR ---
RECEIVED PT FROM 3RD FLOOR AND PT WAS PLACED ON BIPAP MACHINE AND TO TRANSPORTATION MANAGER. PT SHOWING AFIB WITH RVR AND HR AT 130"S TO 140'S AND SHORTNESS OF BREATH NOTED.
[2020-01-18] MEDS ORDERED: DIGOXIN 125 MCG TABLET PO SCH (09:00)
[2020-01-18] MEDS: METOCLOPRAMIDE 10 MG/2 ML VIAL IVP SCH ×2 (09:00→21:42)
[2020-01-18] MEDS: TAMSULOSIN HCL 0.4 MG CAP.ER.24H PO SCH (09:00)
[2020-01-18] MEDS: DILTIAZEM HCL 180 MG CAP.SR.24H PO SCH ×2 (09:00→21:43)
[2020-01-18] MEDS: FAMOTIDINE/PF 20 MG/2 ML VIAL IV SCH (09:00)
[2020-01-18 09:48] LABS: ABG BASE EXCESS 10.4 mmol/L (-2.0-3.0); ABG HCO3 36.9 mmol/L (21.0-28.0); ABG OXYGEN SATURATION 97.9 % (95.0-99.0); ABG PCO2 56 mmHg (35-48)
[2020-01-18] MEDS ORDERED: DILTIAZEM HCL 125 MG/25 ML 125 MG in SODIUM CHLORIDE 0.9% 100 ML IV SCH (10:00)
[2020-01-18] MEDS ORDERED: DILTIAZEM HCL 5 MG/ML 10 ML VIAL IV SCH (10:00)
--- NOTE | 2020-01-18 11:20 | NUR ---
PT HAS BEEN ASSESSED BY DR. AREVALO AND DR. HUBBARD AND ORDERS NOTED.
[2020-01-18] MEDS ORDERED: MAGNESIUM 4GM PREMIX 100ML 100 ML IV PRN (11:45)
[2020-01-18] MEDS: ENOXAPARIN SODIUM 80 MG/0.8 ML SQ SCH ×2 (12:00→21:44)
[2020-01-18] MEDS: TRAMADOL HCL 50 MG TABLET PO PRN (12:02)
[2020-01-18] MEDS: MEROPENEM 1 GM VIAL IVP SCH ×2 (12:15→21:41)
[2020-01-18] MEDS ORDERED: MORPHINE SULFATE 4 MG/1ML SYG IV PRN (13:30)
--- NOTE | 2020-01-18 14:00 | NUR ---
PT HAS HAD THE BIPAP OFF AT INTERVALS AND REQUESTING WATER, PT WAS ADVISED THAT HE COULDN'T BE DRINKING TOO MUCH WATER AND POSSIBLE ASPIRATION WITH THE PRESSURE OF THE BIPAP MACHINE.
[2020-01-18] MEDS: KETOROLAC TROMETHAMINE 30MG/ML IV PRN (14:51)
[2020-01-18] MEDS: DOXYCYCLINE 100MG+NS 250ML 250 ML IV SCH (16:40)
[2020-01-18] MEDS: LISINOPRIL 5 MG TABLET PO SCH (21:43)
[2020-01-18] MEDS: CARVEDILOL 6.25 MG TABLET PO SCH (21:44)
[2020-01-19] VITALS (21 sets, daily range): BP systolic 67–166; BP diastolic 29–94
[2020-01-19] MEDS: DOXYCYCLINE 100MG+NS 250ML 250 ML IV SCH ×2 (00:59→11:55)
[2020-01-19] MEDS: FUROSEMIDE 10 MG/ML 4ML VIAL IV SCH ×2 (01:24→15:21)
[2020-01-19] MEDS: IPRATROPIUM 0.5 MG/2.5 ML INH IH SCH ×6 (01:32→21:45)
[2020-01-19 03:55] LABS: ABG BASE EXCESS 12.3 mmol/L (-2.0-3.0); ABG HCO3 38.5 mmol/L (21.0-28.0); ABG OXYGEN SATURATION 95.7 % (95.0-99.0); ABG PCO2 55 mmHg (35-48)
[2020-01-19] MEDS: MEROPENEM 1 GM VIAL IVP SCH ×3 (03:58→22:32)
[2020-01-19] MEDS: METHYLPREDNISOLONE SOD SUCC 125MG/2ML VIAL IVP SCH ×4 (03:58→18:45)
[2020-01-19 04:14] LABS: HEMATOCRIT 28.7 % (42-54); MEAN CORPUSCULAR HEMOGLOBIN 31.2 pg (27.0-33.0); MEAN CORPUSCULAR HGB CONC 32.4 g/dL (32.0-36.0); MEAN CORPUSCULAR VOLUME 96.3 fL (79-99); PLATELET COUNT (AUTO) 406 K/uL (130-400); RED BLOOD CELL COUNT(AUTO) 2.98 MIL/uL (4.50-6.20); RED CELL DISTRIBUTION WIDTH 12.2 % (11.0-15.5); WHITE BLOOD COUNT (AUTO) 14.8 K/uL (4.8-10.8)
[2020-01-19 04:44] LABS: INR 1.15 (0.85-1.15); PARTIAL THROMBOPLASTIN TIME 33.5 SEC (26.3-35.5); PROTHROMBIN TIME 12.4 SEC (9.6-11.6)
[2020-01-19 04:54] LABS: CREATININE 1.2 mg/dL (0.5-1.5); MAGNESIUM 1.6 mg/dL (1.80-2.40); PHOSPHORUS 3.9 mg/dL (2.5-4.9); POTASSIUM 3.3 mmol/L (3.5-5.1)
[2020-01-19] MEDS ORDERED: POTASSIUM CHLORIDE 10% ELIXIR 20 MEQ/15 ML UDCUP ONE (06:09)
[2020-01-19] MEDS: ACETYLCYSTEINE 20% 200MG/ML 4ML VIAL IH SCH ×3 (06:35→18:27)
[2020-01-19] MEDS: BUDESONIDE 0.5 MG/2 ML INH IH SCH ×2 (06:35→18:26)
[2020-01-19] MEDS: LISINOPRIL 5 MG TABLET PO SCH ×2 (08:56→22:33)
[2020-01-19] MEDS: DILTIAZEM HCL 180 MG CAP.SR.24H PO SCH (08:56)
[2020-01-19] MEDS: TAMSULOSIN HCL 0.4 MG CAP.ER.24H PO SCH (08:56)
[2020-01-19] MEDS: METOCLOPRAMIDE 10 MG/2 ML VIAL IVP SCH ×2 (08:57→22:32)
[2020-01-19] MEDS: FAMOTIDINE/PF 20 MG/2 ML VIAL IV SCH (08:57)
[2020-01-19] MEDS: CARVEDILOL 6.25 MG TABLET PO SCH (08:57)
[2020-01-19] MEDS: ENOXAPARIN SODIUM 80 MG/0.8 ML SQ SCH ×2 (08:58→22:34)
--- NOTE | 2020-01-19 16:16 | NUR ---
DC Plan Staffed case with CM. In agreement to [facility]: multiple IV ABXs, IV Lasix, and Bipap. Left message with Dr. Ontiveros regarding change in DCP from SNF to [facility]. Pending response. CD
[2020-01-19] MEDS: METOPROLOL TARTRATE 25 MG TAB PO SCH (22:32)
[2020-01-20] VITALS (46 sets, daily range): BP systolic 89–179; BP diastolic 41–120
[2020-01-20] MEDS: IPRATROPIUM 0.5 MG/2.5 ML INH IH SCH ×6 (02:05→21:50)
[2020-01-20] MEDS: DOXYCYCLINE 100MG+NS 250ML 250 ML IV SCH ×2 (02:41→12:19)
[2020-01-20] MEDS: METHYLPREDNISOLONE SOD SUCC 125MG/2ML VIAL IVP SCH ×3 (02:42→17:15)
[2020-01-20] MEDS: FUROSEMIDE 10 MG/ML 4ML VIAL IV SCH ×2 (02:42→13:36)
[2020-01-20] MEDS: LORAZEPAM 1 MG TABLET PO PRN ×3 (02:42→19:48)
[2020-01-20 03:40] LABS: BASOPHILS % (AUTO) 0.1 % (0.0-5.0); LYMPHOCYTES % (AUTO) 7.4 % (21.0-51.0); MEAN CORPUSCULAR HEMOGLOBIN 30.9 pg (27.0-33.0); MEAN CORPUSCULAR HGB CONC 32.3 g/dL (32.0-36.0); MEAN CORPUSCULAR VOLUME 95.7 fL (79-99); MONOCYTES % (AUTO) 3.9 % (3.0-13.0); NEUTROPHILS % (AUTO) 87.2 % (40.0-77.0); PLATELET COUNT (AUTO) 466 K/uL (130-400); RED BLOOD CELL COUNT(AUTO) 3.24 MIL/uL (4.50-6.20); RED CELL DISTRIBUTION WIDTH 12.1 % (11.0-15.5); WHITE BLOOD COUNT (AUTO) 13.2 K/uL (4.8-10.8)
[2020-01-20] MEDS: MEROPENEM 1 GM VIAL IVP SCH ×3 (04:01→19:47)
[2020-01-20 04:02] LABS: ALBUMIN 2.4 g/dL (3.5-5.0); BILIRUBIN,TOTAL 0.4 mg/dL (0.2-1.0); CREATININE 1.1 mg/dL (0.5-1.5); MAGNESIUM 2.1 mg/dL (1.80-2.40); POTASSIUM 3.6 mmol/L (3.5-5.1); TOTAL PROTEIN, SERUM 6.8 g/dL (6.0-8.3)
[2020-01-20] MEDS: ACETYLCYSTEINE 20% 200MG/ML 4ML VIAL IH SCH ×3 (06:44→18:17)
[2020-01-20] MEDS: BUDESONIDE 0.5 MG/2 ML INH IH SCH ×2 (06:47→18:17)
[2020-01-20] MEDS: METOCLOPRAMIDE 10 MG/2 ML VIAL IVP SCH ×2 (08:01→19:52)
[2020-01-20] MEDS: FAMOTIDINE/PF 20 MG/2 ML VIAL IV SCH (08:02)
[2020-01-20] MEDS: TAMSULOSIN HCL 0.4 MG CAP.ER.24H PO SCH (08:02)
[2020-01-20] MEDS: LISINOPRIL 5 MG TABLET PO SCH (08:02)
[2020-01-20] MEDS: METOPROLOL TARTRATE 25 MG TAB PO SCH ×6 (08:02→19:48)
[2020-01-20] MEDS: ENOXAPARIN SODIUM 80 MG/0.8 ML SQ SCH ×2 (08:03→19:51)
[2020-01-20 09:05] LABS: ABG BASE EXCESS 13.4 mmol/L (-2.0-3.0); ABG HCO3 40.1 mmol/L (21.0-28.0); ABG OXYGEN SATURATION 95.9 % (95.0-99.0); ABG PCO2 58 mmHg (35-48)
--- NOTE | 2020-01-20 09:30 | NUR ---
DR HAAS UPDATED ON LATEST ABG'S AND MADE AWARE ABOUT PATIENT PLACED ON BIPAP 10/12, RATE 12, FIO2 AT 30%, NOTED USING ACCESSORY MUSCLES, CRACKLES, RHONCHI, NOTED TO ALL LUNG JAIME
--- NOTE | 2020-01-20 09:31 | NUR ---
ADMINISTERED 25 MG OF METOPROLOL TARTRATE TO COMPLETE NEW DOSE OF 50 MG, ORDERED PER DR MARSHALL
[2020-01-20 10:59] LABS: ABG BASE EXCESS 13.4 mmol/L (-2.0-3.0); ABG HCO3 40.2 mmol/L (21.0-28.0); ABG OXYGEN SATURATION 97.4 % (95.0-99.0); ABG PCO2 59 mmHg (35-48)
--- NOTE | 2020-01-20 11:08 | NUR ---
NUTRITION RECOMMENDATIONS PT MOVED TO ICU HAVING RESPIRATORY ISSUES. DIET: UNABLE TO ADVANCE DIET, CURRENTLY ON CLEAR LIQUIDS X 7 DAYS. POOR PO AND TOLERANCE, NOTED. PT ON BIPAP AT THIS MOMENT- RN NOTIFIED AND WILL SPEAK TO MD REGARDING NUTRITIONAL CONCERNS. S/P SIGMOID COLON RESECTION W/ COLOSTOMY PLACEMENT ON 01/12. PLEASE CONTACT LISA AT [phone] WITH DIET UPDATES, THANK YOU. Addendum: 01/20/20 at [address] Amended: Links added.
--- NOTE | 2020-01-20 11:10 | NUR ---
DR HAAS NOTIFIED VIA PHONE ABOUT PATIENT BEING VERY ANXIOUS AND WANTING TO REMOVE BIPAP, LATEST ABG RESULTS NOTIFIED TO MD, NEW ORDERS GIVEN TO INITIATE PRECEDEX DRIP AT 0.5MCG/KG/HR, ORDERS CARRIED OUT, ORDERED PER MD
[2020-01-20] MEDS ORDERED: DEXMEDETOMIDINE HCL 200 MCG in SODIUM CHLORIDE 0.9% 50 ML IV SCH ×2 (11:15→13:30)
--- NOTE | 2020-01-20 13:19 | NUR ---
HELD DOSE OF METOPROLOL, CURRENT B/P 98/43, AFIB 88, DR HAAS NOITIFIED
[2020-01-21] VITALS (29 sets, daily range): BP systolic 90–162; BP diastolic 47–98
[2020-01-21] MEDS: IPRATROPIUM 0.5 MG/2.5 ML INH IH SCH ×6 (02:08→21:27)
[2020-01-21] MEDS: ACETYLCYSTEINE 20% 200MG/ML 4ML VIAL IH SCH ×3 (02:11→13:46)
[2020-01-21] MEDS: DOXYCYCLINE 100MG+NS 250ML 250 ML IV SCH ×2 (02:29→14:56)
[2020-01-21] MEDS: METHYLPREDNISOLONE SOD SUCC 125MG/2ML VIAL IVP SCH ×3 (02:29→18:07)
[2020-01-21] MEDS: FUROSEMIDE 10 MG/ML 4ML VIAL IV SCH ×2 (02:30→14:56)
[2020-01-21] MEDS: LORAZEPAM 1 MG TABLET PO PRN (04:12)
[2020-01-21] MEDS: MEROPENEM 1 GM VIAL IVP SCH ×3 (04:12→21:57)
[2020-01-21] MEDS: BUDESONIDE 0.5 MG/2 ML INH IH SCH ×2 (07:11→18:50)
[2020-01-21] MEDS: METOCLOPRAMIDE 10 MG/2 ML VIAL IVP SCH ×2 (08:52→21:03)
[2020-01-21] MEDS: TAMSULOSIN HCL 0.4 MG CAP.ER.24H PO SCH (08:53)
[2020-01-21] MEDS: METOPROLOL TARTRATE 50 MG TAB PO SCH ×2 (08:53→21:04)
[2020-01-21] MEDS: FAMOTIDINE/PF 20 MG/2 ML VIAL IV SCH (08:53)
[2020-01-21] MEDS: ENOXAPARIN SODIUM 80 MG/0.8 ML SQ SCH ×2 (08:54→21:04)
--- NOTE | 2020-01-21 12:40 | NUR ---
DYSPHAGIA EVAL COMPLETED. +S/S OF ASPIRATION WITH ALL TEXTURES. RECOMMEND NPO UNTIL MBSS. CAREGIVERS NON MEDICAL EDUCATED Pt ON RISKS AND CONSEQUENCES OF ASPIRATION. Pt VERBALIZED THAT HE WAS SWALLOWING FINE AND WANTS TO KEEP ON EATING. MULTIPLE ATTEMPTS TO RE-EDUCATE PROVIDED BY CAREGIVERS NON MEDICAL. CAREGIVER AT BEDSIDE VERBALIZED UNDERSTANDING AND COMPLIANCE. Pt TO SPEAK TO MD AT THIS TIME. CAREGIVERS NON MEDICAL COORDINATED CARE WITH NURSE HELENA. Addendum: 01/21/20 at 1243 by VERN HADLEY, [facility] Amended: Links added.
[2020-01-21 13:27] LABS: MAGNESIUM 1.8 mg/dL (1.80-2.40); POTASSIUM 3.3 mmol/L (3.5-5.1)
--- NOTE | 2020-01-21 16:00 | NUR ---
RD UPDATE Pt diet advanced to Full Liquid diet. Pt receiving Ensure BID. No report of GI distress. RD to continue to monitor.
[2020-01-21] MEDS ORDERED: MAGNESIUM 2GM PREMIX 50ML 50 ML IV PRN (16:15)
[2020-01-21] MEDS ORDERED: POTASSIUM CHLORIDE 10% ELIXIR 20 MEQ/15 ML UDCUP PO PRN (16:15)
[2020-01-21] MEDS ORDERED: POTASSIUM CHLORIDE 20MEQ/100ML 100 ML IV PRN (16:15)
[2020-01-21] MEDS ORDERED: LIDOCAINE HCL-MPF 1% 2ML VIAL IV PRN (16:15)
[2020-01-21] MEDS: POTASSIUM CHLORIDE 20 MEQ ERTAB PO PRN (18:07)
[2020-01-22] VITALS (24 sets, daily range): BP systolic 111–163; BP diastolic 55–114
[2020-01-22] MEDS: IPRATROPIUM 0.5 MG/2.5 ML INH IH SCH ×6 (01:30→21:41)
[2020-01-22] MEDS: METHYLPREDNISOLONE SOD SUCC 125MG/2ML VIAL IVP SCH (01:46)
[2020-01-22] MEDS: DOXYCYCLINE 100MG+NS 250ML 250 ML IV SCH ×2 (02:02→11:48)
[2020-01-22] MEDS: FUROSEMIDE 10 MG/ML 4ML VIAL IV SCH (02:02)
[2020-01-22 03:55] LABS: BASOPHILS % (AUTO) 0.1 % (0.0-5.0); HEMATOCRIT 35.9 % (42-54); LYMPHOCYTES % (AUTO) 6.8 % (21.0-51.0); MEAN CORPUSCULAR HEMOGLOBIN 30.7 pg (27.0-33.0); MONOCYTES % (AUTO) 5.6 % (3.0-13.0); NEUTROPHILS % (AUTO) 86.6 % (40.0-77.0); PLATELET COUNT (AUTO) 511 K/uL (130-400); RED BLOOD CELL COUNT(AUTO) 3.74 MIL/uL (4.50-6.20); RED CELL DISTRIBUTION WIDTH 12.1 % (11.0-15.5); WHITE BLOOD COUNT (AUTO) 12.8 K/uL (4.8-10.8)
[2020-01-22 04:11] LABS: ALBUMIN 2.6 g/dL (3.5-5.0); BILIRUBIN,TOTAL 0.3 mg/dL (0.2-1.0); MAGNESIUM 1.7 mg/dL (1.80-2.40); POTASSIUM 3.2 mmol/L (3.5-5.1); TOTAL PROTEIN, SERUM 6.9 g/dL (6.0-8.3)
[2020-01-22] MEDS: BUDESONIDE 0.5 MG/2 ML INH IH SCH ×2 (05:15→18:37)
[2020-01-22] MEDS: MEROPENEM 1 GM VIAL IVP SCH ×3 (05:16→19:46)
[2020-01-22] MEDS: POTASSIUM CHLORIDE 20 MEQ ERTAB PO PRN ×3 (05:42→10:15)
[2020-01-22 08:25] LABS: ABG BASE EXCESS 17.4 mmol/L (-2.0-3.0); ABG HCO3 44.1 mmol/L (21.0-28.0); ABG OXYGEN SATURATION 96.5 % (95.0-99.0); ABG PCO2 59 mmHg (35-48)
[2020-01-22] MEDS: FAMOTIDINE/PF 20 MG/2 ML VIAL IV SCH (08:36)
[2020-01-22] MEDS: METOCLOPRAMIDE 10 MG/2 ML VIAL IVP SCH ×2 (08:36→20:31)
[2020-01-22] MEDS: TAMSULOSIN HCL 0.4 MG CAP.ER.24H PO SCH (08:37)
[2020-01-22] MEDS: METOPROLOL TARTRATE 50 MG TAB PO SCH ×2 (08:37→20:32)
--- NOTE | 2020-01-22 08:55 | NUR ---
TRANSFERRED VIA BED FOR SCHEDULED MBSS
[2020-01-22] MEDS: METHYLPREDNISOLONE SOD SUCC 40MG/ML 1ML IVP SCH ×2 (09:33→20:31)
[2020-01-22] MEDS: APIXABAN 2.5 MG TABLET PO SCH ×2 (09:33→20:32)
[2020-01-22] MEDS ORDERED: METOPROLOL TARTRATE 1 MG/ML 5ML VIAL IV PRN (10:30)
--- NOTE | 2020-01-22 11:04 | NUR ---
MBSS COMPLETED. -S/S OF ASPIRATION. PATIENT DOWNGRADED TO MECHANICAL SOFT/CHOPPED, THIN LIQUIDS, PILLS WHOLE WITH LIQUIDS. Pt. ACCOMPANIED BY NURSE SAMPSON DURING MBSS. Pt. EDUCATED ON RESULTS AND RECOMMENDATIONS. RECOMMENDATIONS: 1. SKILLED SPEECH THERAPY 3-5 TIMES A WEEK TARGETING OROPHARYNGEAL DYSPHAGIA. LTG 1. PATIENT WILL TOLERATE LEAST RESTRICTED DIET FOR ALL MEALS WITH NO S/S OF ASPIRATION. STG 1. Pt WILL COMPLETE ORAL MOTOR EXERCISES WITH 80% ACCURACY. STG 2. Pt WILL COMPLETE TONGUE BASE EXERCISES WITH 80% ACCURACY. STG 3. Pt WILL TOLERATE MECHANICAL SOFT/CHOPPED, THIN LIQUIDS WITH NO S/S OF ASPIRATION. STG 4. Pt WILL TOLERATE TRIALS OF ADVANCED TEXTURES OF REGULAR SOLIDS WITH NO S/S OF ASPIRATION. STG 5 SKILLED EDUCATION Pt./FAMILY/STAFF NO FAMILY PRESENT AT THE TIME OF EVALUATION. Addendum: 01/22/[address] DINA FERRELL Amended: Links added.
--- NOTE | 2020-01-22 14:00 | NUR ---
DR PA AT BEDSIDE TO ASSESS PATIENT
--- NOTE | 2020-01-22 15:48 | NUR ---
RD UPDATE Pt diet order advanced to Heart healthy, Mechanical Soft/Chopped diet order. Pt with fair PO at time of screen of 50%. RD to continue to monitor for tolerance and overall nutritional status.
[2020-01-23] VITALS (18 sets, daily range): BP systolic 116–157; BP diastolic 45–109
[2020-01-23] MEDS: DOXYCYCLINE 100MG+NS 250ML 250 ML IV SCH ×2 (00:15→12:13)
[2020-01-23] MEDS: IPRATROPIUM 0.5 MG/2.5 ML INH IH SCH ×6 (01:46→21:45)
[2020-01-23] MEDS: MEROPENEM 1 GM VIAL IVP SCH ×3 (04:09→22:20)
[2020-01-23 05:17] LABS: HEMATOCRIT 34.3 % (42-54); MEAN CORPUSCULAR HGB CONC 32.9 g/dL (32.0-36.0); MEAN CORPUSCULAR VOLUME 97.2 fL (79-99); PLATELET COUNT (AUTO) 412 K/uL (130-400); RED BLOOD CELL COUNT(AUTO) 3.53 MIL/uL (4.50-6.20); RED CELL DISTRIBUTION WIDTH 12.3 % (11.0-15.5); WHITE BLOOD COUNT (AUTO) 17.5 K/uL (4.8-10.8)
[2020-01-23 05:54] LABS: ALBUMIN 2.5 g/dL (3.5-5.0); BILIRUBIN,TOTAL 0.4 mg/dL (0.2-1.0); CREATININE 0.8 mg/dL (0.5-1.5); MAGNESIUM 2.1 mg/dL (1.80-2.40); POTASSIUM 3.8 mmol/L (3.5-5.1); TOTAL PROTEIN, SERUM 6.4 g/dL (6.0-8.3)
[2020-01-23] MEDS: BUDESONIDE 0.5 MG/2 ML INH IH SCH ×2 (06:19→18:52)
[2020-01-23] MEDS: METOCLOPRAMIDE 10 MG/2 ML VIAL IVP SCH ×2 (08:52→22:21)
[2020-01-23] MEDS: METHYLPREDNISOLONE SOD SUCC 40MG/ML 1ML IVP SCH ×2 (08:52→22:21)
[2020-01-23] MEDS: FAMOTIDINE/PF 20 MG/2 ML VIAL IV SCH (08:52)
[2020-01-23] MEDS: TAMSULOSIN HCL 0.4 MG CAP.ER.24H PO SCH (08:52)
[2020-01-23] MEDS: METOPROLOL TARTRATE 50 MG TAB PO SCH ×2 (08:52→22:21)
[2020-01-23] MEDS: APIXABAN 2.5 MG TABLET PO SCH ×2 (08:52→22:21)
--- NOTE | 2020-01-23 11:30 | NUR ---
Hero d/c'd. Due to void at 17:30 01/23/2020.
--- NOTE | 2020-01-23 13:17 | NUR ---
FOLLOW UP COMPLETED. UNLOADER COORDINATED WITH NURSE ELBA. Pt. TOLERATING PO DIET OF MECHANICAL SOFT/CHOPPED, THIN LIQUIDS AT THIS TIME WITH NO OVERT SIGNS OR SYMPTOMS OF ASPIRATION DURING MEALTIME. RECOMMEND CONTINUED DIET MODIFICATION TOLERATED. Addendum: 01/23/[address] MARIAELENA Amended: Links added.
--- NOTE | 2020-01-23 14:30 | NUR ---
Patient in no apparent distress. No c/o pain, n/v, vertigo. Report given to DARSHANA Miller. Patient transferred at this time.
--- NOTE | 2020-01-23 14:45 | NUR ---
DC PLAN GOT NEW ORDER FOR SNF. SENT UPDATES TO FACILITY. SPOKE TO REP. WILL SUBMIT FOR AUTH. Addendum: 01/23/20 at 1447 by KAREN YOO RN CM Amended: Links added.
[2020-01-24 00:09] VITALS: BP 134/80
[2020-01-24] MEDS: DOXYCYCLINE 100MG+NS 250ML 250 ML IV SCH ×2 (00:15→12:41)
[2020-01-24] MEDS: IPRATROPIUM 0.5 MG/2.5 ML INH IH SCH ×6 (02:01→22:23)
[2020-01-24 04:06] VITALS: BP 154/83
[2020-01-24] MEDS: MEROPENEM 1 GM VIAL IVP SCH ×2 (04:31→12:41)
[2020-01-24] MEDS: BUDESONIDE 0.5 MG/2 ML INH IH SCH ×2 (07:02→18:50)
[2020-01-24 07:32] VITALS: BP 156/94
[2020-01-24] MEDS: TAMSULOSIN HCL 0.4 MG CAP.ER.24H PO SCH (09:29)
[2020-01-24] MEDS: METOPROLOL TARTRATE 50 MG TAB PO SCH ×2 (09:29→21:03)
[2020-01-24] MEDS: APIXABAN 2.5 MG TABLET PO SCH ×2 (09:29→21:03)
[2020-01-24] MEDS: METOCLOPRAMIDE 10 MG/2 ML VIAL IVP SCH ×2 (09:31→21:03)
[2020-01-24] MEDS: FAMOTIDINE/PF 20 MG/2 ML VIAL IV SCH (09:31)
[2020-01-24] MEDS: METHYLPREDNISOLONE SOD SUCC 40MG/ML 1ML IVP SCH (09:31)
--- NOTE | 2020-01-24 11:40 | NUR ---
[facility] Spoke minor Garcia regarding status of ins auth. Mentions to please send clinical updates. Clinical faxed this am. Will continue to follow.
[2020-01-24 12:04] VITALS: BP 119/70
[2020-01-24 15:46] VITALS: BP 124/97
[2020-01-24 20:01] VITALS: BP 141/88
[2020-01-25] VITALS (7 sets, daily range): BP systolic 125–148; BP diastolic 65–85
[2020-01-25] MEDS: IPRATROPIUM 0.5 MG/2.5 ML INH IH SCH ×4 (01:55→17:25)
[2020-01-25 04:54] LABS: HEMATOCRIT 33.6 % (42-54); MEAN CORPUSCULAR HEMOGLOBIN 31.6 pg (27.0-33.0); MEAN CORPUSCULAR HGB CONC 32.7 g/dL (32.0-36.0); MEAN CORPUSCULAR VOLUME 96.6 fL (79-99); PLATELET COUNT (AUTO) 397 K/uL (130-400); RED BLOOD CELL COUNT(AUTO) 3.48 MIL/uL (4.50-6.20); RED CELL DISTRIBUTION WIDTH 12.4 % (11.0-15.5); WHITE BLOOD COUNT (AUTO) 17.7 K/uL (4.8-10.8)
[2020-01-25 05:10] LABS: CREATININE 0.9 mg/dL (0.5-1.5); POTASSIUM 4.1 mmol/L (3.5-5.1)
[2020-01-25] MEDS: BUDESONIDE 0.5 MG/2 ML INH IH SCH ×2 (06:25→17:25)
[2020-01-25] MEDS: METOCLOPRAMIDE 10 MG/2 ML VIAL IVP SCH ×2 (09:08→20:33)
[2020-01-25] MEDS: FAMOTIDINE/PF 20 MG/2 ML VIAL IV SCH (09:08)
[2020-01-25] MEDS: APIXABAN 2.5 MG TABLET PO SCH ×2 (09:08→20:33)
[2020-01-25] MEDS: TAMSULOSIN HCL 0.4 MG CAP.ER.24H PO SCH (09:09)
[2020-01-25] MEDS: METOPROLOL TARTRATE 50 MG TAB PO SCH ×2 (09:09→20:33)
[2020-01-26 03:56] VITALS: BP 142/95
[2020-01-26] MEDS: IPRATROPIUM 0.5 MG/2.5 ML INH IH SCH ×5 (06:23→23:32)
[2020-01-26] MEDS: BUDESONIDE 0.5 MG/2 ML INH IH SCH ×2 (06:23→18:20)
[2020-01-26 07:00] VITALS: BP 149/89
[2020-01-26] MEDS: METOCLOPRAMIDE 10 MG/2 ML VIAL IVP SCH (09:29)
[2020-01-26] MEDS: FAMOTIDINE/PF 20 MG/2 ML VIAL IV SCH ×2 (09:29→20:13)
[2020-01-26] MEDS: APIXABAN 2.5 MG TABLET PO SCH ×2 (09:30→20:14)
[2020-01-26] MEDS: METOPROLOL TARTRATE 50 MG TAB PO SCH ×2 (09:30→20:13)
[2020-01-26] MEDS: TAMSULOSIN HCL 0.4 MG CAP.ER.24H PO SCH (09:30)
[2020-01-26 11:00] VITALS: BP 119/77
[2020-01-26] MEDS: METOCLOPRAMIDE 5 MG TABLET PO SCH ×2 (11:58→17:14)
--- NOTE | 2020-01-26 12:48 | NUR ---
RD FOLLOW UP Pt tolerating current diet order with no report of GI distress. Pt with good PO intake, as per Pt. Recommend to continue current diet order. Monitored labs: Cl 99, CO2 39, BUN 37, Alb 2.5. RD to continue to monitor. Please notify RD as additional nutrition concerns arise. Thank you. Addendum: 01/26/20 at [address] Amended: Links added.
--- NOTE | 2020-01-26 13:54 | NUR ---
FOLLOW UP COMPLETED. Pt CURRENTLY TOLERATING MECHANICAL SOFT/CHOPPED, THIN LIQUIDS WITH NO OVERT S/S OF ASPIRATION. TECHNOLOGY RESOURCE TEACHER COORDINATED CARE WITH NURSE BUNDY. RECOMMEND CONTINUED P.O. AT THIS TIME. RECOMMEND D/C FROM SKILLED SPEECH THERAPY. Addendum: 01/26/20 at 1358 by VERN HADLEY, SPT ST Amended: Links added.
[2020-01-26 15:58] VITALS: BP 121/60
--- NOTE | 2020-01-26 16:41 | NUR ---
DC PLAN PATIENT WANTED TO GO HOME. SAID THAT HE HAS 28/05 CARE. SPOKE TO PATIENT TO MAKE SURE TO CALL PROVIDER TO MAKE SURE THAT THEY WERE STILL AVAILABLE SINCE HE HAS BEEN HERE A LONG TIME. SAID OKAY. PER NURSE. PROVIDER FINALLY CALLED HIM BACK SAID THAT SINCE HE HAD BEEN HERE SO LONG THEY GOT ANOTHER CLIENT. NO ONE AVAILABLE AT HOME. CALLED [facility] SAID PATIENT IS [facility] AND THEY CHECKED THIS MORNING. NO AUTH YET. WILL HAVE TO FOLLOW UP WITH PATIENT AND SEE WHAT COMPANY WAS GIVING HIM PROVIDER SERVICES. Addendum: 01/26/20 at 1649 by KAREN YOO RN CM Amended: Links added.
--- NOTE | 2020-01-26 16:56 | NUR ---
SPOKE WITH MR INTERIANO ABOUT HIS CARE AT HOME AND HE INSTRUCTED ME THAT HE HAS LOST HIS PROVIDERS, CAREGIVERS AND WILL NEED TO RE-ESTABLISH HIS HOME CARE. SPOKE WITH KAREN GILLILANDCOUNTER TACKER AND SHE WILL GET [facility]IV[facility] RE-ESTABLISHED SOON POSSIBLE. Addendum: 01/26/20 at 1709 by NOVA VICTOR RN RN Amended: Links added.
[2020-01-26 19:29] VITALS: BP 135/73
[2020-01-26] MEDS ORDERED: FAMOTIDINE/PF 20 MG/2 ML VIAL IV ONE (19:58)
[2020-01-26 23:16] VITALS: BP 131/80
[2020-01-27 04:22] VITALS: BP 140/74
[2020-01-27] MEDS: BUDESONIDE 0.5 MG/2 ML INH IH SCH ×2 (06:05→18:49)
[2020-01-27] MEDS: IPRATROPIUM 0.5 MG/2.5 ML INH IH SCH ×3 (06:05→18:49)
[2020-01-27] MEDS: METOCLOPRAMIDE 5 MG TABLET PO SCH ×3 (06:20→16:21)
[2020-01-27 07:00] VITALS: BP 136/86
--- NOTE | 2020-01-27 08:15 | NUR ---
AM ASSESSMENT PT LAYING IN BED, WATCHING TV. A/O X 3. NO SOB. NO DISTRESS NOTED. O2 NC @ 2L. DENIES CHEST PAIN OR DISCOMFORT. DENIES PALPITATIONS. DENIES INCISIONAL PAIN. TELE: A FLUTER. DENIES N/V AND/OR DIARRHEA. LOWER MIDLINE ABDOMINAL INCISION WELL APPROX, NO DRAINAGE NOTED. AZAR INTACT. @ THIS TIME IV DC'D, IV SITE TENDER. PT REQUESTING TO HAVE NO IV INSERTED. EXPLAINED TO PT NEED FOR IV ACCESS DURING HOSPITAL STAY. PT REFUSES TO HAVE AN IN INSERTED. PT ON NO IV MEDS. TO BE NOTIFIED. UP W/ASSISTANCE. INSTRUCTED TO CALL FOR ASSISTANCE. CALL DARLENE W/IN REACH.
[2020-01-27] MEDS: TAMSULOSIN HCL 0.4 MG CAP.ER.24H PO SCH (08:17)
[2020-01-27] MEDS: APIXABAN 2.5 MG TABLET PO SCH ×2 (08:18→21:02)
[2020-01-27] MEDS: METOPROLOL TARTRATE 50 MG TAB PO SCH ×2 (08:18→21:02)
[2020-01-27] MEDS: FAMOTIDINE/PF 20 MG/2 ML VIAL IV SCH (08:18)
--- NOTE | 2020-01-27 10:30 | NUR ---
MD NOTIFICATION NOTIFIED PT REQUESTING TO BE W/OUT IV ACCESS. PER , OK FOR PT OT BE W/OUT IV ACCESS REMAINDER OF HOSPITAL STAY. NURSING COMM TO BE ENTERED. PT PENDING TO APPROVAL TO [facility] FOR DISCHARGE FROM HOSPITAL.
[2020-01-27 11:00] VITALS: BP 110/54
--- NOTE | 2020-01-27 15:07 | NUR ---
DC PLAN GOT A CALL FROM CAREGIVER CAROL POTTS SHE CARES FOR PATIENT. 28/05 WHEN NEEDED. [phone]. PATIENT SPOKE TO CORRINA YESTERDAY AND THERE WAS A MISCOMMUNICATION. SHE WAS TRYING TO TELL HIM THAT THEY WOULD PREFER FOR HIM TO GO TO [facility] AND THEN THEY CAN CARE FOR HIM. NOT THAT THEY WERE NO LONGER GOING TO BE PROVIDERS. TALKED TO PT SAID PATIENT COULD STILL USE THERAPY AT FACILITY PATIENT AMBULATED 4 FT. PER PROVIDER PATIENT WAS SELF SUFFICIENT BEFORE COULD DRIVE. SPOKE TO [facility] DUE TO PATIENT GOING TO ICU BEFORE THEY LOST AUTH AND NEEDED TO RESUBMIT. INFO SENT ON SUNDAY. UPDATES SENT ON SUNDAY. THEY DID NOT SUBMIT UNTIL YESTERDAY. INSURANCE STILL HAS 72 HOURS TO GIVE US AN ANSWER. LET PATIENT KNOW OF SITUATION. SAID OKAY WILL WAIT FOR INSURANCE TO DETERMINE ACCEPTANCE. Addendum: 01/27/20 at 1522 by KAREN YOO RN CM Amended: Links added.
[2020-01-27 16:00] VITALS: BP 134/72
[2020-01-27 20:26] VITALS: BP 138/62
--- NOTE | 2020-01-28 | NUR ---
PT HAD A MOMENT OF CONFUSION. WAS UNABLE TO FIND CALL LIGHT ALTHOUGH IT WAS NEXT TO HIM, HE IS UNABLE TO SPEAK LOUDLY FOR HELP. THEREFORE HE STOOD UP AND STARTED BANGING AGAINST THE DOOR. WE ASSISTED HIM BACK TO BED. PT STATED HE HAD HARD TIME FINDING CALL LIGHT, AND DIDNT REALIZE IT WAS NEAR HIM. HE ALSO DID NOT REALIZE WHAT HE WAS CALLING FOR. REDIRECTED. AND PLACED BACK IN BED WITH OXYGEN. OTHERWISE, NO FURTHER CONCERNS.
[2020-01-28 00:07] VITALS: BP 125/69
[2020-01-28] MEDS: IPRATROPIUM 0.5 MG/2.5 ML INH IH SCH ×3 (00:49→11:42)
[2020-01-28 04:44] VITALS: BP 130/85
[2020-01-28] MEDS: BUDESONIDE 0.5 MG/2 ML INH IH SCH (06:54)
[2020-01-28 07:00] VITALS: BP 129/75
[2020-01-28] MEDS: METOCLOPRAMIDE 5 MG TABLET PO SCH ×2 (08:15→11:55)
[2020-01-28] MEDS: TAMSULOSIN HCL 0.4 MG CAP.ER.24H PO SCH (08:16)
[2020-01-28] MEDS: METOPROLOL TARTRATE 50 MG TAB PO SCH (08:16)
[2020-01-28] MEDS: APIXABAN 2.5 MG TABLET PO SCH (08:16)
--- NOTE | 2020-01-28 10:47 | NUR ---
MARISA HOUSER CALLED WITH [facility] SAID PATIENT ACCEPTED AT 0900. LET NURSE KNOW. WINSTON DONE AND EMS IN CHART. Addendum: 01/28/20 at 1056 by KAREN YOO RN CM Amended: Links added.
[2020-01-28 11:00] VITALS: BP 116/55
--- NOTE | 2020-01-28 14:30 | NUR ---
DISCHARGE TELEPHONE REPORT GIVEN TO SANIA GRIER LVN.
--- NOTE | 2020-01-28 14:39 | NUR ---
DISCHARGE [facility] CALLED TO REQUEST TRANSPORT TO [facility].
--- NOTE | 2020-01-28 16:05 | NUR ---
DISCHARGED TO [facility] PLACE VIA W/C WITH ALL BELONGINGS AND O2 AT 2L/NC.
--- NOTE | 2020-01-28 16:34 | NUR ---
DC PLAN PATIENT WILL GO [facility]. EMS CALLED SAID THAT PATIENT DOES NOT HAVE BENEFITS PRIVATE GOFF IS [phone] PATIENT WILL TRY TO GO [facility]IA [facility]. [employer] MON[employer]O AND [employer]IRAG FORM EMAILED AND FAXED TO REP HOUSER. Addendum: 01/28/20 at 1637 by KAREN YOO RN CM Amended: Links added.
== END 2020-01-28 16:20 | DRG 329 ==
LOC: EDH 11:56 → EDHIP 15:37 → OBSVTOIN 15:37 → 4AH 19:23 → 3DH 01-13 06:08 → 2BH 01-18 08:33 → 2DH 01-23 14:54 → 2AH 01-27 13:31
PROVIDERS: ADMIT Family Medicine; ATTEND Family Medicine
PROC: 0D9E8ZZ Drainage of Large Intestine, Via Natural or Artificial Opening Endoscopic (ICD-10-PCS; 2020-01-05)
PROC: 0DJD8ZZ Inspection of Lower Intestinal Tract, Via Natural or Artificial Opening Endoscopic (ICD-10-PCS; 2020-01-08)
PROC: 0D1M0Z4 Bypass Descending Colon to Cutaneous, Open Approach (ICD-10-PCS; 2020-01-12)
PROC: 0DTN0ZZ Resection of Sigmoid Colon, Open Approach (ICD-10-PCS; principal; 2020-01-12 09:39)
PROC: 0DBU0ZZ Excision of Omentum, Open Approach (ICD-10-PCS; 2020-01-12 09:39)
PROC: 5A09357 Assistance with Respiratory Ventilation, Less than 24 Consecutive Hours, Continuous Positive Airway Pressure (ICD-10-PCS; 2020-01-17)
PROC: 5A09357 Assistance with Respiratory Ventilation, Less than 24 Consecutive Hours, Continuous Positive Airway Pressure (ICD-10-PCS; 2020-01-20)
DX: K56.2 Volvulus (principal); I50.23 Acute on chronic systolic (congestive) heart failure; J96.20 Acute and chronic respiratory failure, unspecified whether with hypoxia or hypercapnia; J18.9 Pneumonia, unspecified organism; E44.0 Moderate protein-calorie malnutrition; E87.1 Hypo-osmolality and hyponatremia; K59.39 Other megacolon; E78.5 Hyperlipidemia, unspecified; I25.5 Ischemic cardiomyopathy; I35.0 Nonrheumatic aortic (valve) stenosis; I11.0 Hypertensive heart disease with heart failure; J84.10 Pulmonary fibrosis, unspecified; I48.0 Paroxysmal atrial fibrillation; D63.8 Anemia in other chronic diseases classified elsewhere; J43.9 Emphysema, unspecified; E11.9 Type 2 diabetes mellitus without complications; E83.42 Hypomagnesemia; I25.10 Atherosclerotic heart disease of native coronary artery without angina pectoris; I45.10 Unspecified right bundle-branch block; R13.12 Dysphagia, oropharyngeal phase; Z68.20 Body mass index [BMI] 20.0-20.9, adult; Z88.0 Allergy status to penicillin; Z79.01 Long term (current) use of anticoagulants; Z79.899 Other long term (current) drug therapy; Z87.891 Personal history of nicotine dependence; Z90.49 Acquired absence of other specified parts of digestive tract; Z93.3 Colostomy status; Z95.5 Presence of coronary angioplasty implant and graft; Z99.81 Dependence on supplemental oxygen
CPT/HCPCS: 36415; 36600; 45337; 71045; 71250; 71275; 72128; 74018; 74176; 74230; 76872; 80048; 80053; 82550; 82803; 82948; 83605; 83690; 83735; 83874; 83880; 84100; 84132; 84484; 85025; 85027; 85378; 85610; 85651; 85730; 86850; 86900; 86901; 92610; 92611; 93005; 93306; 94640; 94660; 94664; 97039; A4344; A5061; G0378; J0330; J1160; J1650; J1885; J1940; J1956; J2001; J2060; J2175; J2185; J2270; J2370; J2405; J2704; J2710; J2765; J2920; J2930; J3010; J3475; J3490; J7030; J7120; J7608; P9045; Q9967

== ENCOUNTER 2020-02-29 14:50 | Inpatient (IN) | payer OTHER, MEDICARE ==
[~2020-02-29] VITALS: Ht 152.4 cm; Wt 78.9 kg
[2020-02-29] VITALS (8 sets, daily range): BP systolic 108–148; BP diastolic 56–79
[~2020-02-29 14:50] MED LIST changes: +ALBU1.252 IH; -ASPI-555 PO; +ASPI-556 PO; +BACL10TA PO; +CLON0.1T PO; -FISH12002 PO; -GUAI1TBM19 PO; -LEVO500T89 PO; +METO10TA3 PO; +MONT10TA26 PO; -MULT-1081 PO; -RAMI10CA69 PO; +TAMS-1 PO; +TRAZ-185 PO
[2020-02-29] MEDS ORDERED: IPRATROPIUM/ALBUTEROL SULFATE 3 ML SOLUTION IH ONE (14:59)
[2020-02-29 15:21] LABS: BASOPHILS % (AUTO) 0.4 % (0.0-5.0); HEMATOCRIT 36.7 % (42-54); LYMPHOCYTES % (AUTO) 7.7 % (21.0-51.0); MEAN CORPUSCULAR HEMOGLOBIN 32.2 pg (27.0-33.0); MEAN CORPUSCULAR HGB CONC 29.4 g/dL (32.0-36.0); MEAN CORPUSCULAR VOLUME 109.6 fL (79-99); MONOCYTES % (AUTO) 10.4 % (3.0-13.0); NEUTROPHILS % (AUTO) 80.8 % (40.0-77.0); NUCLEATED RED BLOOD CELLS 0.3 % (0.0-0.19); PLATELET COUNT (AUTO) 303 K/uL (130-400); RED BLOOD CELL COUNT(AUTO) 3.35 MIL/uL (4.50-6.20); RED CELL DISTRIBUTION WIDTH 15.2 % (11.0-15.5); WHITE BLOOD COUNT (AUTO) 10.7 K/uL (4.8-10.8)
[2020-02-29 15:32] LABS: ABG BASE EXCESS -3.7 mmol/L (-2.0-3.0); ABG HCO3 31.2 mmol/L (21.0-28.0); ABG OXYGEN SATURATION 96.7 % (95.0-99.0); ABG PCO2 124 mmHg (35-48)
[2020-02-29 15:33] LABS: INR 1.14 (0.85-1.15); PARTIAL THROMBOPLASTIN TIME 24.9 SEC (26.3-35.5); PROTHROMBIN TIME 12.3 SEC (9.6-11.6)
[2020-02-29 15:36] LABS: ALBUMIN 3.4 g/dL (3.5-5.0); BILIRUBIN,TOTAL 0.5 mg/dL (0.2-1.0); TOTAL PROTEIN, SERUM 7.5 g/dL (6.0-8.3)
[2020-02-29] MEDS ORDERED: VANCOMYCIN 1GM+NS 250ML 250 ML IV ONE (15:47)
[2020-02-29] MEDS ORDERED: LEVOFLOXACIN 750 MG/D5W 150 ML 150 ML ONE (15:47)
[2020-02-29] MEDS ORDERED: METHYLPREDNISOLONE SOD SUCC 125MG/2ML VIAL ONE (15:47)
[2020-02-29] MEDS ORDERED: DILTIAZEM HCL 5 MG/ML 10 ML VIAL IV ONE (15:48)
[2020-02-29 15:50] LABS: POTASSIUM 6.6 mmol/L (3.5-5.1)
[2020-02-29] MEDS ORDERED: SODIUM BICARB 50MEQ 50ML VIAL ONE (16:11)
[2020-02-29] MEDS ORDERED: CALCIUM GLUCONATE 1 GM/10 ML VIAL IV ONE (16:11)
[2020-02-29] MEDS ORDERED: INSULIN HUMULIN R 100 UNIT/ML 3ML ONE (16:11)
[2020-02-29] MEDS ORDERED: DEXTROSE 50%-WATER 50 ML DISP.SYRIN IV ONE (16:12)
[2020-02-29] MEDS ORDERED: DILTIAZEM HCL 125 MG/25 ML VIAL IV ONE (16:22)
[2020-02-29] MEDS ORDERED: PROPOFOL 1000 MG/100 ML 100 ML IV ONE ×2 (16:32→22:10)
[2020-02-29 16:54] LABS: ABG BASE EXCESS -1.6 mmol/L (-2.0-3.0); ABG OXYGEN SATURATION 99.6 % (95.0-99.0); ABG PCO2 62 mmHg (35-48)
[2020-02-29 17:28] LABS: APPEARANCE,URINE Cloudy (CLEAR); BILIRUBIN,URINE Small (NEGATIVE); COLOR,URINE Dark Yellow (YELLOW); GLUCOSE, URINE (UA) Negative (NEGATIVE); KETONES,URINE Negative (NEGATIVE); LEUKOCYTE ESTERASE ,URINE Negative (NEGATIVE); NITRATE,URINE Negative (NEGATIVE); OCCULT BLOOD,URINE Large (NEGATIVE); PROTEIN,URINE 300 mg/dL (NEGATIVE)
[2020-02-29 17:48] LABS: AMORPHOUS SEDIMENT,UR Many /LPF (None Seen); BACTERIA,URINE Few /HPF (None Seen); WBC,URINE 0-1 /HPF (0-1)
[2020-02-29] MEDS ORDERED: PHENYLEPHRINE HCL 10 MG/ML 1ML VIAL IV ONE (22:10)
--- NOTE | 2020-02-29 22:15 | NUR ---
Received patient at 2215 from ED intubated and sedated on propofol, cardizem turned off, corona and OG tube in place. Patient is in A-Fib 120-130s so cardizem restarted.
[2020-02-29] MEDS: PROPOFOL 1000 MG/100 ML 100 ML IV SCH (22:30)
[2020-02-29] MEDS ORDERED: VASOPRESSIN 20 UNITS in SODIUM CHLORIDE 0.9% 100 ML IV SCH (22:30)
[2020-02-29 22:32] LABS: CREATININE 1.7 mg/dL (0.5-1.5); POTASSIUM 5.6 mmol/L (3.5-5.1)
[2020-02-29 22:44] LABS: ABG BASE EXCESS 1.2 mmol/L (-2.0-3.0); ABG HCO3 24.1 mmol/L (21.0-28.0); ABG OXYGEN SATURATION 99.3 % (95.0-99.0); ABG PCO2 33 mmHg (35-48)
--- NOTE | 2020-02-29 22:45 | NUR ---
Lamar Centeno RING ATTACHER called and informed that patient arrived to room 218. ABG results read to her, vent changes made, and other orders entered into system.
[2020-02-29] MEDS ORDERED: SODIUM POLYSTYRENE SULFONATE 15 GM/60 ML ML PO PRN (23:00)
[2020-02-29] MEDS ORDERED: SODIUM POLYSTYRENE SULFONATE 15 GM/60 ML ML RC SCH (23:00)
--- NOTE | 2020-02-29 23:00 | NUR ---
Patient's Provider Belia Dhillon called to obtain daughter's phone number. Belia stated she knows the daughter wanted patient to be a DNR. Will call Daughter and follow up.
--- NOTE | 2020-02-29 23:10 | NUR ---
Patient's Daughter Saray Mata called, no answer at this time. Will continue to try and make contact.
[2020-02-29] MEDS ORDERED: PROPOFOL 1000 MG/100 ML IV PRN (23:15)
[2020-02-29] MEDS: SODIUM CHLORIDE 0.9% 1000ML 1,000 ML IV SCH (23:35)
[2020-02-29] MEDS: METHYLPREDNISOLONE SOD SUCC 40MG/ML 1ML IVP SCH (23:36)
[2020-03-01] VITALS (77 sets, daily range): BP systolic 74–151; BP diastolic 39–98
[2020-03-01] MEDS ORDERED: IPRATROPIUM/ALBUTEROL SULFATE 3 ML SOLUTION IH SCH
[2020-03-01] MEDS: PROPOFOL 1000 MG/100 ML 100 ML IV SCH ×4 (01:48→20:19)
[2020-03-01] MEDS: DILTIAZEM HCL 125 MG/25 ML 125 MG in SODIUM CHLORIDE 0.9% 100 ML IV SCH ×3 (03:49→19:15)
--- NOTE | 2020-03-01 04:00 | NUR ---
Patient arrived to Unit at 0400 into room 219 on room air, but short of breath at times. Patient alert and oriented. Addendum: 03/01/20 at 0520 by ALTON CANDELARIA RN RN ERROR. Wrong Patient
[2020-03-01 04:13] LABS: ABG BASE EXCESS 1.1 mmol/L (-2.0-3.0); ABG HCO3 21.9 mmol/L (21.0-28.0); ABG PCO2 26 mmHg (35-48)
[2020-03-01] MEDS ORDERED: ACETAMINOPHEN 325 MG TAB PO PRN (04:30)
[2020-03-01] MEDS ORDERED: ONDANSETRON HCL 4 MG/2 ML VIAL IVP PRN (04:30)
--- NOTE | 2020-03-01 04:30 | NUR ---
Lamar Centeno Paged for HR and ABG results, waiting for callback
[2020-03-01] MEDS ORDERED: SODIUM CHLORIDE 0.9% 1000ML 1,000 ML IV SCH (04:45)
--- NOTE | 2020-03-01 05:45 | NUR ---
Lamar Centeno NP returned page and updated on patient's heart rate and abg. Orders read back and entered into the system.
[2020-03-01] MEDS: ALBUTEROL SULFATE/IPRATROPIUM 103/18 MCG/PUFF 14.7 GM INHR IH SCH ×3 (06:00→14:00)
[2020-03-01 06:06] LABS: HEMATOCRIT 28.8 % (42-54); MEAN CORPUSCULAR HEMOGLOBIN 32.3 pg (27.0-33.0); MEAN CORPUSCULAR HGB CONC 31.6 g/dL (32.0-36.0); MEAN CORPUSCULAR VOLUME 102.1 fL (79-99); NUCLEATED RED BLOOD CELLS 0.6 % (0.0-0.19); RED BLOOD CELL COUNT(AUTO) 2.82 MIL/uL (4.50-6.20); RED CELL DISTRIBUTION WIDTH 14.8 % (11.0-15.5); WHITE BLOOD COUNT (AUTO) 10.6 K/uL (4.8-10.8)
[2020-03-01] MEDS ORDERED: DIGOXIN 250 MCG/ML 2ML AMP ONE (06:08)
[2020-03-01 06:24] LABS: CREATININE 1.6 mg/dL (0.5-1.5); POTASSIUM 4.5 mmol/L (3.5-5.1)
[2020-03-01] MEDS: INSULIN HUMULIN R 100 UNIT/ML 3ML SQ SCH ×4 (06:24→20:16)
[2020-03-01] MEDS: AZITHROMYCIN 500MG+NS 250ML 250 ML IV SCH (06:25)
[2020-03-01] MEDS ORDERED: DIGOXIN 250 MCG/ML 2ML AMP IV SCH (06:51)
[2020-03-01] MEDS ORDERED: FAMOTIDINE 20MG TAB 20 MG TAB PO SCH (09:00)
[2020-03-01] MEDS ORDERED: ENOXAPARIN SODIUM 30 MG/0.3 ML SQ SCH (09:00)
[2020-03-01] MEDS: PHENYLEPHRINE HCL 50 MG/NS 250ML IV PRN ×4 (09:06→19:15)
[2020-03-01] MEDS: ENOXAPARIN SODIUM 30 MG/0.3 ML SQ SCH (09:09)
[2020-03-01] MEDS: METHYLPREDNISOLONE SOD SUCC 40MG/ML 1ML IVP SCH ×2 (09:09→20:16)
[2020-03-01] MEDS: PANTOPRAZOLE 40 MG/VIAL IVP SCH (09:10)
--- NOTE | 2020-03-01 10:36 | NUR ---
DC PLAN PATIENT IN [facility] ICU. FROM PREVIOUS VISIT PATIENT LIVES ALONE. INDEPENDENT AT THE TIME HAD 28/05 INTERNAL INVESTIGATOR CAROL POTTS [phone]. WALKER, WHEEL CHAIR AND 02 AVAILABLE. PATIENT HAD DECLINED WHILE IN HOSPITAL ONLY AMBULATING 4FT. PATIENT DC TO [facility] FOR PHYSICAL THERAPY. AT THIS TIME PATIENT IS VENTED. CM WILL CONTINUE TO FOLLOW. Addendum: 03/01/20 at 1039 by KAREN YOO RN CM Amended: Links added.
[2020-03-01] MEDS: SODIUM CHLORIDE 0.9% 1000ML 1,000 ML IV SCH (11:50)
--- NOTE | 2020-03-01 13:48 | NUR ---
DC PLAN [facility] CALLED SAID PATIENT BEING SEEN BY THEM FOR HOME HEALTH HAD BEEN SET UP ON DC FROM [facility]. Addendum: 03/01/20 at 1349 by KAREN YOO RN CM Amended: Links added.
[2020-03-01] MEDS: DIGOXIN 250 MCG/ML 2ML AMP IV SCH ×2 (14:16→19:04)
[2020-03-01 15:10] LABS: ABG BASE EXCESS 0.2 mmol/L (-2.0-3.0); ABG HCO3 25.5 mmol/L (21.0-28.0); ABG OXYGEN SATURATION 98.6 % (95.0-99.0); ABG PCO2 44 mmHg (35-48)
[2020-03-01] MEDS ORDERED: SODIUM POLYSTYRENE SULFONATE 15 GM/60 ML ML RC SCH (16:00)
--- NOTE | 2020-03-01 16:29 | NUR ---
RD NOTIFICATION - TUBE FEEDING RECOMMENDATIONS Recommend Vital High protein, initiated at 25mls/hr for 5 hours. Increase rate as tolerated by 5 mL every 5 hours to Goal. Goal: 45mls/hr (1080 kcal, 95gm protein). Flushes 140 mls Q6hrs. RN notified. Orders faxed to [phone]. Pt admitted with Respiratory failure. Intubated, sedated. Propofol in place @22mls/hr (580kcal) RD to monitor labs and tube feeding tolerance. Please notify as additional nutrition concerns arise.
--- NOTE | 2020-03-01 16:54 | NUR ---
PICC LINE PLACED TO RIGHT ARM
[2020-03-01] MEDS ORDERED: TIOT18CA3 IH (23:09)
[2020-03-01] MEDS ORDERED: APIX2.5T PO (23:09)
[2020-03-01] MEDS ORDERED: LORA-192 PO (23:09)
[2020-03-01] MEDS ORDERED: METO50TA18 PO (23:09)
[2020-03-01] MEDS ORDERED: POTA10CA44 PO (23:09)
[2020-03-02] VITALS (95 sets, daily range): BP systolic 84–158; BP diastolic 34–109
[2020-03-02] MEDS ORDERED: METOPROLOL TARTRATE 1 MG/ML 5ML VIAL IV PRN (00:45)
[2020-03-02] MEDS: PROPOFOL 1000 MG/100 ML 100 ML IV SCH ×3 (02:21→23:55)
[2020-03-02] MEDS: DILTIAZEM HCL 125 MG/25 ML 125 MG in SODIUM CHLORIDE 0.9% 100 ML IV SCH ×3 (02:23→21:21)
[2020-03-02] MEDS: AZITHROMYCIN 500MG+NS 250ML 250 ML IV SCH (06:37)
[2020-03-02] MEDS: INSULIN HUMULIN R 100 UNIT/ML 3ML SQ SCH ×4 (06:50→20:57)
--- NOTE | 2020-03-02 08:06 | NUR ---
0100: AGRICULTURE RESEARCH DIRECTOR, Tegan mirza, made aware of patients heart rate. afib rate 110 to 130. order for 5mg prn metoprolol for hr greater then 140s. torb
[2020-03-02] MEDS: METHYLPREDNISOLONE SOD SUCC 40MG/ML 1ML IVP SCH ×2 (09:28→20:57)
[2020-03-02] MEDS: PANTOPRAZOLE 40 MG/VIAL IVP SCH (09:28)
[2020-03-02] MEDS: ENOXAPARIN SODIUM 30 MG/0.3 ML SQ SCH (09:29)
[2020-03-02] MEDS: DIGOXIN 250 MCG/ML 2ML AMP IV SCH (09:32)
--- NOTE | 2020-03-02 12:45 | NUR ---
[place] TURNED OFF, PLACED ONCPAP PER DR JEAN
[2020-03-02] MEDS ORDERED: ALBUMIN (HUMAN) 25% 100 ML IV SCH (13:00)
[2020-03-02] MEDS: PHARMACY COMMUNICATION MISC SCH ×3 (13:15→20:57)
[2020-03-02 14:49] LABS: ABG HCO3 29.7 mmol/L (21.0-28.0); ABG OXYGEN SATURATION 96.3 % (95.0-99.0); ABG PCO2 49 mmHg (35-48)
--- NOTE | 2020-03-02 15:00 | NUR ---
ABG'D DRAWN, PT NOT TOLERATING CPAP OTILIA FOWLER CHROME PLATER PT BECAME TACHYCARDIC AND TACHYPEIC USING ACCESSORY MUSCLES TO BREATHE AND WITH AGITATION AND SHALLOW BREATHING. ABLE TO MOVE ALL EXTREMITIES, NOT FOLLOWING COMANDS.
[2020-03-02] MEDS: LEVOFLOXACIN 500 MG/D5W 100 ML 100 ML IV SCH (15:07)
--- NOTE | 2020-03-02 15:30 | NUR ---
PLACED BACK ON SEDATION AND VENTILLATOR TO AC MODE
[2020-03-03] VITALS (88 sets, daily range): BP systolic 89–140; BP diastolic 37–90
[2020-03-03] MEDS: PHARMACY COMMUNICATION MISC SCH ×3 (01:15→09:12)
[2020-03-03] MEDS: AZITHROMYCIN 500MG+NS 250ML 250 ML IV SCH (05:27)
[2020-03-03 05:46] LABS: BASOPHILS % (AUTO) 0.1 % (0.0-5.0); LYMPHOCYTES % (AUTO) 2.4 % (21.0-51.0); MEAN CORPUSCULAR HEMOGLOBIN 31.3 pg (27.0-33.0); MEAN CORPUSCULAR HGB CONC 31.2 g/dL (32.0-36.0); MEAN CORPUSCULAR VOLUME 100.4 fL (79-99); MONOCYTES % (AUTO) 2.6 % (3.0-13.0); NEUTROPHILS % (AUTO) 94.2 % (40.0-77.0); PLATELET COUNT (AUTO) 200 K/uL (130-400); RED BLOOD CELL COUNT(AUTO) 2.59 MIL/uL (4.50-6.20); WHITE BLOOD COUNT (AUTO) 13.9 K/uL (4.8-10.8)
[2020-03-03] MEDS: DILTIAZEM HCL 125 MG/25 ML 125 MG in SODIUM CHLORIDE 0.9% 100 ML IV SCH ×2 (05:47→11:17)
[2020-03-03] MEDS: INSULIN HUMULIN R 100 UNIT/ML 3ML SQ SCH ×3 (05:58→20:00)
[2020-03-03 06:34] LABS: ALBUMIN 2.7 g/dL (3.5-5.0); BILIRUBIN,TOTAL 0.5 mg/dL (0.2-1.0); CREATININE 1.4 mg/dL (0.5-1.5); POTASSIUM 3.6 mmol/L (3.5-5.1); TOTAL PROTEIN, SERUM 5.8 g/dL (6.0-8.3)
[2020-03-03 06:57] LABS: DIGOXIN 0.98 ng/mL (0.50-2.00)
[2020-03-03] MEDS: PROPOFOL 1000 MG/100 ML 100 ML IV SCH (07:59)
[2020-03-03] MEDS: METHYLPREDNISOLONE SOD SUCC 40MG/ML 1ML IVP SCH ×2 (08:00→20:04)
[2020-03-03] MEDS: DIGOXIN 250 MCG/ML 2ML AMP IV SCH (08:00)
[2020-03-03] MEDS: ENOXAPARIN SODIUM 30 MG/0.3 ML SQ SCH (08:01)
[2020-03-03] MEDS: PANTOPRAZOLE 40 MG/VIAL IVP SCH (09:12)
--- NOTE | 2020-03-03 10:00 | NUR ---
SEDATION VACATION,PLACED ON CPAP PT ABLE TO MOVE ARMS AND LEGS. NOT FOLLOWING COMMANDS, RESTLESS AND ATTEMPS TO TOUCH HIS FACE. WILL CONTINUE TO MONITOR
--- NOTE | 2020-03-03 11:00 | NUR ---
PT BECAME TACHYPNEIC. USING ACESSORY MUSCLES, NOT PULLING ENOUGH TIDAL VOLUMES. UNABLE TO GIVE EFFECTIVE COUGH PLACED BACK TO AC MODE ON VENT. LIGHT SEDATION RESTARTED.
--- NOTE | 2020-03-03 12:43 | NUR ---
DR FALL HERE, CALLED DAUGHTER WITH UPDATE ON FAILED WEANING FROM VENT FOR PT.
--- NOTE | 2020-03-03 15:44 | NUR ---
[facility] CONSULT PATIENT ASSESSED REQUESTED: [facility] RECOMMENDATIONS SUBMITTED AND REPORT GIVEN TO PATIENT'S NURSE MEGHAN Addendum: 03/03/20 at 1545 by DOROTHY ELY LVN Amended: Links added.
[2020-03-03] MEDS: HONEY 1 APPL/ML TUBE TP SCH (17:19)
[2020-03-04] VITALS (48 sets, daily range): BP systolic 104–147; BP diastolic 49–95
[2020-03-04] MEDS: PROPOFOL 1000 MG/100 ML 100 ML IV SCH ×2 (01:21→09:24)
[2020-03-04] MEDS: AZITHROMYCIN 500MG+NS 250ML 250 ML IV SCH (05:03)
[2020-03-04] MEDS: DILTIAZEM HCL 125 MG/25 ML 125 MG in SODIUM CHLORIDE 0.9% 100 ML IV SCH ×2 (05:05→18:17)
[2020-03-04 05:08] LABS: HEMATOCRIT 25.7 % (42-54); LYMPHOCYTES % (AUTO) 3.7 % (21.0-51.0); MEAN CORPUSCULAR HGB CONC 31.5 g/dL (32.0-36.0); MEAN CORPUSCULAR VOLUME 101.6 fL (79-99); MONOCYTES % (AUTO) 3.9 % (3.0-13.0); NEUTROPHILS % (AUTO) 91.3 % (40.0-77.0); PLATELET COUNT (AUTO) 163 K/uL (130-400); RED BLOOD CELL COUNT(AUTO) 2.53 MIL/uL (4.50-6.20); RED CELL DISTRIBUTION WIDTH 16.8 % (11.0-15.5); WHITE BLOOD COUNT (AUTO) 8.2 K/uL (4.8-10.8)
[2020-03-04 05:19] LABS: CREATININE 1.2 mg/dL (0.5-1.5); PHOSPHORUS 2.7 mg/dL (2.5-4.9); POTASSIUM 3.4 mmol/L (3.5-5.1)
[2020-03-04] MEDS: INSULIN HUMULIN R 100 UNIT/ML 3ML SQ SCH ×4 (05:46→17:50)
[2020-03-04] MEDS: DIGOXIN 250 MCG/ML 2ML AMP IV SCH (08:16)
[2020-03-04] MEDS: METHYLPREDNISOLONE SOD SUCC 40MG/ML 1ML IVP SCH ×2 (08:16→21:48)
[2020-03-04] MEDS: ENOXAPARIN SODIUM 30 MG/0.3 ML SQ SCH (08:17)
--- NOTE | 2020-03-04 09:00 | NUR ---
DIPRIVAN STOPPED, PLACED ON CPAP MODE. SEDATION VACATION
[2020-03-04] MEDS: PANTOPRAZOLE 40 MG/VIAL IVP SCH (09:13)
--- NOTE | 2020-03-04 10:17 | NUR ---
PT IS FOLLOWING COMMANDS, HE IS STRONG ENOUGH TO TAKE HIS HEAD OFF THE PILLOW. O2 SAT IS 98% BREATHING RATE IS 24 TIDAL VOLUMES OF 350-400
--- NOTE | 2020-03-04 10:21 | NUR ---
CASE MANAGEMENT CONSULTED FOR PALLIATIVE CARE PER DAUGHTERS WISHES
[2020-03-04] MEDS ORDERED: IPRATROPIUM/ALBUTEROL SULFATE 3 ML SOLUTION IH SCH (10:30)
[2020-03-04 11:13] LABS: ABG BASE EXCESS 4.8 mmol/L (-2.0-3.0); ABG HCO3 29.9 mmol/L (21.0-28.0); ABG PCO2 45 mmHg (35-48)
--- NOTE | 2020-03-04 11:22 | NUR ---
PT IS AWAKE, ALERT, FOLLOWS COMMANDS. LISTENED TO DAUGHTER OVER THE PHONE. WAS EXPLAINED ABOUT HIS SITUATION. WAS ASKED IF ONCE HIS TUBE WAS REMOVED, DID HE WANT IT PLACED BACK,,, HE ANSWERED NO. HE ALSO NODDED YES TO HOSPICE TREATMENT. PT WAS ASKED AGAIN BY RESPIRATORY THERAPIST IF HE WANTED THE VENTILLATOR PLACED BACK IN THE EVENT HE COULD NOT BREATHE CORRECTLY. HE ANSWERED NO AGAIN. DAUGHTER HAS BEEN INFORMED AND IS ALSO IN AGREEMENT WITH PTS DECISION
--- NOTE | 2020-03-04 11:45 | NUR ---
EXTUBATED WITHOUT INCIDENT. PLACED ON AEROSOL MASK 40% VS STABLE PT IS RESTING.
--- NOTE | 2020-03-04 12:30 | NUR ---
PT WAS TRANSFERRED TO DAY PT 1C FROM POD 2 C. PT HAS O2 PER AEROSOL MIST. PT'S DAUGHTER HAS BEEN IN CONTACT WITH MEGHAN GILLILAND CONCERNING HIS DNR AND HOSPICE STATUS. DAUGHTER HAS DECIDED TO RECONSULT HOSPICE.
--- NOTE | 2020-03-04 12:47 | NUR ---
TRANSFERRED TO DAYPT 1C WITHOUT INCIDENT. PT IS AWAKE, FOLLOWS COMMANDS. HOARSE LOW VOICE. ONLY ASKING FOR WATER AT THIS TIME. NOT RESPONDING TO TREATMENT DECISIONS AT THIS TIME. SAYS YES, THEN NO TO HOSPICE. NOT RELIABLE AT THIS TIME. WILL INFORM DAUGHTER.
--- NOTE | 2020-03-04 12:49 | NUR ---
SBAR REPORT TO SACHIN GILLILAND
[2020-03-04] MEDS: LEVOFLOXACIN 500 MG/D5W 100 ML 100 ML IV SCH (14:51)
[2020-03-04] MEDS: HONEY 1 APPL/ML TUBE TP SCH (14:52)
--- NOTE | 2020-03-04 14:54 | NUR ---
DISCHARGE PLANNING - [facility] , SEE NOTE CALL ANKUSH STEPHENSON RN, RE CONSULT OF PALLIATIVE CARE. FAMILY WANTS TO BE SURE THAT [facility] IS THE HOSPICE SELECTED, THAT WAS PT'S PREVIOUS COMPANY. CALL ANKUSH LAYNE MESSAGE ON PHONE, SAME CONCERN, WILL SET UP REFERRAL TOMORROW. CALL ANKUSH POTTS, CALLING ON BEHALF FOR DAUGHTER, PLEASE MAKE SURE IT'S [facility] TEXT TO DR. FALL, UPDATED, FAMILY PREFERENCE, REFERRAL FOR AM, REC'D ORDER FOR HOSPICE REFERRAL TO [facility] FOR AM Addendum: 03/04/20 at 1458 by GAIL QUINN RN Amended: Links added.
--- NOTE | 2020-03-04 14:57 | NUR ---
RD FOLLOW UP NOTE Pt s/p extubation, tube feeding held. Pending Hospice Recommend [facility] pending diet advancement, as medically feasible. Please notify LISA as nutritional concerns arise. Thank you. Addendum: 03/04/20 at [address] Amended: Links added.
--- NOTE | 2020-03-04 15:00 | NUR ---
PT HAS BEEN TAKING OXYGEN MASK OFF AND PUTTING IT BACK ON. PT HAS BEEN ADVISED TO KEEP MASK ON BUT IT APPEARS THAT PT IS NOT ACKNOWLEDGING INSTRUCTIONS.
--- NOTE | 2020-03-04 15:02 | NUR ---
LAUNDRY TUB MAKER TO DISCUSS HOSPICE ARRANGEMENTS WITH DAUGHTER TOMORROW 03/05 DAUGHTER AND IN CLASS SPECIAL EDUCATION TEACHER ALREADY IN CONTACT.
[2020-03-04] MEDS ORDERED: MORPHINE SULFATE 2 MG/ML 1ML SYG ONE (16:22)
[2020-03-04] MEDS ORDERED: MORPHINE SULFATE 2 MG/ML 1ML SYG IM PRN (16:30)
[2020-03-04] MEDS ORDERED: LORAZEPAM 2 MG/ML 1 ML VIAL IVP PRN (16:30)
--- NOTE | 2020-03-04 18:00 | NUR ---
SPOKE WITH DAUGHTER WHO LIVES IN [place] AND WAS ADVISED THAT THE CRIPPLE CUTTER WAS WORKING WITH DR. FALL TO SEND PATIENT HOME WITH HOSPICE. DAUGHTER IS GOING TO BE CALLING SURGICAL ORDERLY IN THE MORNING TO GET UPDATE.
[2020-03-04] MEDS ORDERED: IPRATROPIUM/ALBUTEROL SULFATE 3 ML SOLUTION IH ONE (18:32)
[2020-03-04] MEDS ORDERED: IPRATROPIUM/ALBUTEROL SULFATE 3 ML SOLUTION IH PRN (18:45)
--- NOTE | 2020-03-04 20:30 | NUR ---
ASSESSMENT PT HAS GARBLED SPEECH. UNCOOPERATIVE. CARDIZEM AT 10ML/H FOR A.FIBReshma OLSON REVIEWED AND WITHIN REACH. ASSESSMENT COMPLETED SEE FLOW SHEET.
[2020-03-05] VITALS (18 sets, daily range): BP systolic 118–163; BP diastolic 52–86
--- NOTE | 2020-03-05 03:00 | NUR ---
O2 SPO2 90%, FIO2 INCREASED TO 98%.
[2020-03-05 03:46] LABS: HEMATOCRIT 34.2 % (42-54); MEAN CORPUSCULAR HEMOGLOBIN 31.2 pg (27.0-33.0); MEAN CORPUSCULAR HGB CONC 29.5 g/dL (32.0-36.0); MEAN CORPUSCULAR VOLUME 105.6 fL (79-99); NUCLEATED RED BLOOD CELLS 0.2 % (0.0-0.19); RED BLOOD CELL COUNT(AUTO) 3.24 MIL/uL (4.50-6.20); WHITE BLOOD COUNT (AUTO) 13.8 K/uL (4.8-10.8)
[2020-03-05 04:05] LABS: CREATININE 1.3 mg/dL (0.5-1.5); POTASSIUM 4.4 mmol/L (3.5-5.1)
[2020-03-05] MEDS: DILTIAZEM HCL 125 MG/25 ML 125 MG in SODIUM CHLORIDE 0.9% 100 ML IV SCH (04:57)
[2020-03-05] MEDS: AZITHROMYCIN 500MG+NS 250ML 250 ML IV SCH (05:08)
[2020-03-05] MEDS: INSULIN HUMULIN R 100 UNIT/ML 3ML SQ SCH ×3 (06:37→11:49)
[2020-03-05] MEDS: PANTOPRAZOLE 40 MG/VIAL IVP SCH (08:29)
[2020-03-05] MEDS: METHYLPREDNISOLONE SOD SUCC 40MG/ML 1ML IVP SCH (08:30)
[2020-03-05] MEDS: DIGOXIN 250 MCG/ML 2ML AMP IV SCH (08:30)
[2020-03-05] MEDS: ENOXAPARIN SODIUM 30 MG/0.3 ML SQ SCH (08:31)
--- NOTE | 2020-03-05 09:00 | NUR ---
Palma KABACUTTER OPERATOR TILE AT BEDSIDE TO SEE PT. PLAN IF CARE DISCUSSED. PT COMFORT MEASURES.
--- NOTE | 2020-03-05 09:40 | NUR ---
[facility] Shlomo recd call from Kushal at [facility]. Daughter wanting to use [facility], referral needed. SHLOMO spoke to daughter Saloni Mata [phone]. Daughter states she is just getting ready to leave [place] and should arrive in 8 hours. Daughter wanting referral faxed to [facility]. SHLOMO met with nurse Grady, pt not doing well, may pass today, does not look like pt can be transferred back to Assisted Living at this time. Discussed daughter arriving today from [place]. Sw will talk to house coordinator related to family visitation. Shlomo called daughter back and informed that referral will be made, but nurse concerned that pt will pass today. Daughter states pt is comfort measures and DNR. Sw informed daughter that nurse will stay in contact with daughter on pt's condition and I will work on possible visitation for her once she arrives in town. CMD and Coin Purse Framer notified.
--- NOTE | 2020-03-05 12:00 | NUR ---
REVIEWED CHART. SAW PATIENT PATIENT ON HIGH FLOW OXYGEN . AWAITING DAUGHTER'S ARRIVAL
--- NOTE | 2020-03-05 17:30 | NUR ---
Patient received from ICU via hospital bed. Agonal breathing noted. 90% O2 saturation on aerosol mask to 10 L. Colostomy to LUQ with liquid brown stool in drainage device. Dressing to Rt arm clean and dry. Bed low, locked, call bernal within reach. BP 118/82, 68 bpm, R14.
--- NOTE | 2020-03-06 11:20 | NUR ---
Agonal breathing with periods of apnea noted. Unable to auscultate heart sounds or palpate a pulse peripherally. Patient's breathing stopped. Breath sounds absent. No activity vital activity noted on vitals machine. Notified spinning supervisor. Patient pronounced at 11:25 by Palma De León RN. Patient's daughter called.
== END 2020-03-06 11:25 | disposition expired | DRG 871 ==
LOC: EDH 14:50 → EDHIP 17:00 → 2CH 21:18 → DAHIP 03-04 13:58 → 3BH 03-05 18:03
PROVIDERS: ADMIT Family Medicine; ATTEND Family Medicine
PROC: 5A1945Z Respiratory Ventilation, 24-96 Consecutive Hours (ICD-10-PCS; principal; 2020-02-29)
PROC: 0BH17EZ Insertion of Endotracheal Airway into Trachea, Via Natural or Artificial Opening (ICD-10-PCS; 2020-02-29)
PROC: 02HV33Z Insertion of Infusion Device into Superior Vena Cava, Percutaneous Approach (ICD-10-PCS; 2020-03-01)
PROC: 5A09357 Assistance with Respiratory Ventilation, Less than 24 Consecutive Hours, Continuous Positive Airway Pressure (ICD-10-PCS; 2020-03-02)
DX: A41.9 Sepsis, unspecified organism (principal); R65.21 Severe sepsis with septic shock; I50.23 Acute on chronic systolic (congestive) heart failure; N17.0 Acute kidney failure with tubular necrosis; J18.9 Pneumonia, unspecified organism; J96.21 Acute and chronic respiratory failure with hypoxia; R57.0 Cardiogenic shock; I48.91 Unspecified atrial fibrillation; J43.9 Emphysema, unspecified; J84.10 Pulmonary fibrosis, unspecified; Z66 Do not resuscitate; D63.1 Anemia in chronic kidney disease; N18.3 Chronic kidney disease, stage 3 (moderate); E87.5 Hyperkalemia; E11.22 Type 2 diabetes mellitus with diabetic chronic kidney disease; I25.10 Atherosclerotic heart disease of native coronary artery without angina pectoris; I25.5 Ischemic cardiomyopathy; I35.0 Nonrheumatic aortic (valve) stenosis; Z51.5 Encounter for palliative care; Z20.828 Contact with and (suspected) exposure to other viral communicable diseases; Z79.899 Other long term (current) drug therapy; Z90.49 Acquired absence of other specified parts of digestive tract; Z95.5 Presence of coronary angioplasty implant and graft; Z88.0 Allergy status to penicillin
CPT/HCPCS: 31500; 36415; 36600; 71045; 71250; 80048; 80053; 80162; 81001; 82550; 82803; 82948; 83605; 83615; 83735; 83880; 84100; 84484; 85025; 85027; 85378; 85610; 85730; 87040; 87633; 87635; 87804; 93005; 94002; 94003; 94640; C1751; C1894; C9113; G0378; J0456; J0610; J1160; J1650; J1815; J1956; J2060; J2370; J2704; J2920; J2930; J3370; J3490; J7030; J7050; J7070; P9046